=== PATIENT | male | born 1955 | race Caucasian/White ===

== ENCOUNTER 2018-08-05 08:01 | Emergency (ER) | payer MEDICARE ==
[2018-08-05 08:09] VITALS: O2SAT 98
--- NOTE | 2018-08-05 08:22 | ERPHSYRPT ---
- History of Present Illness Time Seen by Provider: 08/05/18 08:17 Historian: patient Exam Limitations: no limitations Physician History: Pt started c/o chest pressure last night after eating hot dog. He has vomited few times, states, the pain has been radiating to his back, denies cough, SOB< fever, diarrhea, diaphoresis other complaints. Timing/Duration: yesterday Activities at Onset: none Quality: pressure Location: central Chest Pain Radiation: back Severity of Pain-Max: severe Severity of Pain-Current: moderate Modifying Factors: Improves With: nothing Associated Symptoms: nausea, vomiting, abdominal pain Prior Chest Pain/Cardiac Workup: no prior chest pain Nitro Today/Relief: no nitro taken today Aspirin Treatment Today: no aspirin today Allergies/Adverse Reactions: No Known Drug Allergies Allergy (Verified 02/10/15 11:32) Home Medications: Meloxicam [Mobic] 15 mg PO DAILY 08/05/18 [History] Tamsulosin HCl 0.4 mg [Flomax 0.4 MG] 0.4 mg PO DAILY 08/05/18 [History] Hx Influenza Vaccination/Date Given: No Hx Pneumococcal Vaccination/Date Given: No - Review of Systems Constitutional: No Symptoms Ears, Nose, & Throat: No Symptoms Respiratory: No Symptoms Cardiac: Chest Pain, No Edema Abdominal/Gastrointestinal: Abdominal Pain, Nausea, Vomiting, No Diarrhea Genitourinary Symptoms: No Symptoms Musculoskeletal: No Symptoms Skin: No Symptoms Neurological: No Symptoms All Other Systems: Reviewed and Negative - Past Medical History Pertinent Past Medical History: Yes Neurological History: Other ENT History: No Pertinent History Cardiac History: No Pertinent History Respiratory History: Bronchitis, COPD, Pneumonia Endocrine Medical History: No Pertinent History Musculoskeletal History: Arthritis GI Medical History: GI Bleed History: No Pertinent History Psycho-Social History: No Pertinent History Male Reproductive Disorders: No Pertinent History Other Medical History: Cerebral Palsy - Past Surgical History Past Surgical History: Yes Neuro Surgical History: No Pertinent History Cardiac: No Pertinent History Respiratory: No Pertinent History Gastrointestinal: Hernia Repair, Other Genitourinary: No Pertinent History Musculoskeletal: Orthopedic Surgery Male Surgical History: No Pertinent History Other Surgical History: feeding tube placed for 2months then removed,L shoulder surgery - Social History Smoking Status: Current every day smoker How long have you smoked: 40 years Exposure to second hand smoke: Yes Drug Use: none Patient Lives Alone: No - Nursing Vital Signs Nursing Vital Signs: Initial Vital Signs Temperature 97.0 F 08/05/18 08:02 Pulse Rate 72 08/05/18 08:02 Respiratory Rate 23 08/05/18 08:02 Blood Pressure 138/82 08/05/18 08:02 O2 Sat by Pulse Oximetry 98 08/05/18 08:02 Pain Scale Pain Intensity 3 - Physical Exam General Appearance: no apparent distress Eye Exam: eyes nml inspection Ears, Nose, Throat Exam: normal ENT inspection, pharynx normal Neck Exam: normal inspection, non-tender, supple, No carotid bruit, No JVD Respiratory Exam: normal breath sounds, lungs clear, airway intact, No chest tenderness Cardiovascular Exam: regular rate/rhythm, normal heart sounds, normal peripheral pulses, No murmur Gastrointestinal/Abdomen Exam: soft, normal bowel sounds, tenderness (epigastric ) Back Exam: normal inspection, No CVA tenderness Extremity Exam: normal inspection Neurologic Exam: alert, oriented x 3, cooperative, normal mood/affect, other ( cerebral palsy) Skin Exam: normal color, warm, dry, No rash Lymphatic Exam: No adenopathy SpO2 Interpretation: normal SpO2: 98 O2 Delivery: Room Air - Course Nursing assessment & vital signs reviewed: Yes EKG Interpreted by Me: RATE (66/min), NORMAL AXIS, NORMAL INTERVALS, NORMAL QRS , Non-specific ST Changes, Other (repeat Ek:12 AM: NSR, unchanged) Ordered Tests: Active Orders 24 hr Category Date Time Status Dat Instructor STAT Care 08/05/18 08:10 Active EKG-ER Only STAT Care 08/05/18 08:09 Active EKG-ER Only STAT Care 08/05/18 10:08 Active IV Insertion STAT Care 08/05/18 08:09 Active CHEST 1 VIEW (PORTABLE) Stat Exams 08/05/18 08:10 Completed CBC W DIFF Stat Lab 08/05/18 08:09 Completed CK-Creatinine Phosphokinase Stat Lab 08/05/18 08:45 Completed CMP Stat Lab 08/05/18 08:45 Completed LIPASE Stat Lab 08/05/18 08:45 Completed NT PRO BNP Stat Lab 08/05/18 08:45 Completed PROTIME WITH INR Stat Lab 08/05/18 08:09 Completed PTT Stat Lab 08/05/18 08:09 Completed TROPONIN Q3H Lab 08/05/18 08:15 Completed TROPONIN Q3H Lab 08/05/18 10:26 Completed TROPONIN Q3H Lab 08/05/18 13:15 Ordered TROPONIN Q3H Lab 08/05/18 16:15 Ordered TROPONIN Q3H Lab 08/05/18 19:15 Ordered TROPONIN Q3H Lab 08/05/18 22:15 Ordered Medication Summary Discontinued Medications Generic Name Dose Route Start Last Admin Trade Name Freq PRN Reason Stop Dose Admin Al Hydrox/Mg Hydrox/Simethicone Confirm 08/05/18 08:25 Maalox Es 30 Ml Unit Dose Administered 08/05/18 08:26 Dose 30 ml .ROUTE .STK-MED ONE Famotidine 20 mg 08/05/18 08:17 08/05/18 08:28 Pepcid 20 Mg PO 08/05/18 08:18 20 mg STAT ONE Administration Famotidine Confirm 08/05/18 08:24 Pepcid 20 Mg Administered 08/05/18 08:25 Dose 20 mg .ROUTE .STK-MED ONE Lidocaine HCl Confirm 08/05/18 08:24 Xylocaine Hcl Viscous * Administered 08/05/18 08:25 Dose 15 ml .ROUTE .STK-MED ONE Magnesium Hydroxide 45 ml 08/05/18 08:17 08/05/18 08:28 Gi Cocktail 45 Ml (Maalox/Lidocaine) PO 08/05/18 08:18 45 ml STAT ONE Administration Ondansetron HCl 4 mg 08/05/18 08:17 08/05/18 08:27 Zofran Odt 4 Mg PO 08/05/18 08:18 4 mg STAT ONE Administration Ondansetron HCl Confirm 08/05/18 08:23 Zofran Odt 4 Mg Administered 08/05/18 08:24 Dose 4 mg .ROUTE .STK-MED ONE Lab/Rad Data: Laboratory Result Diagrams 08/05/18 08:09 08/05/18 08:45 Laboratory Results 08/05/18 08/05/18 08/05/18 Range/Units 10:26 08:45 08:15 WBC (4.0-10.5) K/mm3 RBC (4.1-5.6) M/mm3 Hgb (12.5-18.0) gm/dl Hct (42-50) % MCV (78-100) fl MCH (26-32) pg MCHC (32-36) g/dl RDW (11.5-14.0) % Plt Count (150-450) K/mm3 MPV (6-9.5) fl Gran % (36.0-66.0) % Eos # (Auto) (0-0.5) Absolute Lymphs (auto) (1.0-4.6) Absolute Monos (auto) (0.0-1.3) Lymphocytes % (24.0-44.0) % Monocytes % (0.0-12.0) % Eosinophils % (0.00-5.0) % Basophils % (0.0-0.4) % Absolute Granulocytes (1.4-6.9) Basophils # (0-0.4) PT (8.83-12.87) SECONDS INR (0.8-3.0) APTT (24.1-36.1) SECONDS Sodium 144 (137-145) mmol/L Potassium 4.1 (3.5-5.1) mmol/L Chloride 106 (98-107) mmol/L Carbon Dioxide 29 (22-30) mmol/L Anion Gap 13.5 (5-15) MEQ/L BUN 17 (9-20) mg/dL Creatinine 1.16 (0.66-1.25) mg/dL Estimated GFR > 60.0 ML/MIN Glucose 103 (74-106) mg/dL Calcium 10.2 (8.4-10.2) mg/dL Total Bilirubin 0.40 (0.2-1.3) mg/dL AST 19 (17-59) U/L ALT 15 (0-50) U/L Alkaline Phosphatase 132 H (38-126) U/L Creatine Kinase 56 (55-170) U/L Troponin I < 0.012 < 0.012 (0.000-0.034) ng/mL NT-Pro-B Natriuret Pep 95.0 (0-900) pg/mL Serum Total Protein 8.2 (6.3-8.2) g/dL Albumin 4.4 (3.5-5.0) g/dL Lipase 103 (23-300) U/L 08/05/18 08/05/18 Range/Units 08:09 08:09 WBC 8.5 (4.0-10.5) K/mm3 RBC 4.93 (4.1-5.6) M/mm3 Hgb 14.6 (12.5-18.0) gm/dl Hct 43.6 (42-50) % MCV 88.4 (78-100) fl MCH 29.6 (26-32) pg MCHC 33.5 (32-36) g/dl RDW 14.6 H (11.5-14.0) % Plt Count 159 (150-450) K/mm3 MPV 8.6 (6-9.5) fl Gran % 72.0 H (36.0-66.0) % Eos # (Auto) 0.30 (0-0.5) Absolute Lymphs (auto) 1.47 (1.0-4.6) Absolute Monos (auto) 0.60 (0.0-1.3) Lymphocytes % 17.3 L (24.0-44.0) % Monocytes % 7.1 (0.0-12.0) % Eosinophils % 3.5 (0.00-5.0) % Basophils % 0.1 (0.0-0.4) % Absolute Granulocytes 6.11 (1.4-6.9) Basophils # 0.01 (0-0.4) PT 14.1 H (8.83-12.87) SECONDS INR 1.21 (0.8-3.0) APTT 32.7 (24.1-36.1) SECONDS Sodium (137-145) mmol/L Potassium (3.5-5.1) mmol/L Chloride (98-107) mmol/L Carbon Dioxide (22-30) mmol/L Anion Gap (5-15) MEQ/L BUN (9-20) mg/dL Creatinine (0.66-1.25) mg/dL Estimated GFR ML/MIN Glucose (74-106) mg/dL Calcium (8.4-10.2) mg/dL Total Bilirubin (0.2-1.3) mg/dL AST (17-59) U/L ALT (0-50) U/L Alkaline Phosphatase (38-126) U/L Creatine Kinase (55-170) U/L Troponin I (0.000-0.034) ng/mL NT-Pro-B Natriuret Pep (0-900) pg/mL Serum Total Protein (6.3-8.2) g/dL Albumin (3.5-5.0) g/dL Lipase (23-300) U/L - Progress Progress: improved Air Movement: good Progress Note: 08/05/18 10:15 Pt states, his pain and nausea resolved after Zofran SL and Pepcid, GI cocktail PO, he feels much better, no fever, no difficulty breathing or dizziness, We reviewed his test results, discussed the possible differentials, he is being discharged home to rest x 2-3 days, diet, (no spicy, greasy food) and follow up with his physician in 2-3 days. Blood Culture(s) Obtained: No Antibiotics given: No Counseled pt/family regarding: lab results, diagnosis, need for follow-up, rad results - Departure Departure Disposition: Home Clinical Impression: Chest pain due to GERD Condition: Stable Critical Care Time: No Referrals: ELIS GATICA MD [Primary Care Provider] - Instructions: Atypical Chest Pain Additional Instructions: Rest x 2-3 days, avoid spicy, greasy food, and follow up with your physician in 2-3 days, return if severe pain, vomiting, difficulty breathing, fever> 102 F! Prescriptions: Ondansetron ODT 4 MG [Zofran Odt 4 mg] 4 mg PO Q6H PRN PRN #10 tab.rapdis PRN Reason: Nausea/Vomiting Omeprazole Magnesium [Prilosec] 10 mg PO DAILY #30 suspdr.pkt
[2018-08-05] MEDS ORDERED: ZOFRAN ODT 4 MG ONE (08:23)
[2018-08-05] MEDS ORDERED: Pepcid 20 MG ONE (08:24)
[2018-08-05] MEDS ORDERED: XYLOCAINE HCl Viscous ONE (08:24)
[2018-08-05] MEDS ORDERED: MAALOX ES 30 ML UNIT DOSE ONE (08:25)
[2018-08-05] MEDS: ZOFRAN ODT 4 MG PO ONE (08:27)
[2018-08-05] MEDS: GI COCKTAIL 45 ML (Maalox/Lidocaine) PO ONE (08:28)
[2018-08-05] MEDS: Pepcid 20 MG PO ONE (08:28)
[2018-08-05 08:46] LABS: BASOPHIL % 0.1 % (0.0-0.4); Basophil (Absolute #) 0.01 (0-0.4); Eosinophil % 3.5 % (0.00-5.0); Granulocyte Absolute (ANC) 6.11 (1.4-6.9); Hematocrit 43.6 % (42-50); Hemoglobin 14.6 gm/dl (12.5-18.0); Lymphocyte (Absolute #) 1.47 (1.0-4.6); Lymphocytes % 17.3 % (24.0-44.0); Mean Cell Volume 88.4 fl (78-100); Mean Corpuscular Hemoglobin 29.6 pg (26-32); Mean Corpuscular Hgb Concent. 33.5 g/dl (32-36); Mean Platelet Volume 8.6 fl (6-9.5); Monocytes % 7.1 % (0.0-12.0); Platelet Count 159 K/mm3 (150-450); Red Blood Count 4.93 M/mm3 (4.1-5.6); Red Cell Distribution Width 14.6 % (11.5-14.0); White Blood Count 8.5 K/mm3 (4.0-10.5)
--- NOTE | 2018-08-05 09:00 | XRAY ---
Indication: Chest pain. Comparison: March 19, 2016. Portable chest again hyperinflated with scattered fibrosis/scarring and left base calcified pleural plaquing. No focal infiltrate, consolidation, or large effusion. Heart and mediastinal structures within normal limits. Bony thorax intact again with mild osteopenia. Impression: Stable nonacute hyperinflated chest with chronic features.
[2018-08-05 09:08] LABS: INR 1.21 (0.8-3.0); PROTIME 14.1 SECONDS (8.83-12.87)
[2018-08-05 09:11] LABS: PTT 32.7 SECONDS (24.1-36.1)
[2018-08-05 09:22] LABS: ALBUMIN 4.4 g/dL (3.5-5.0); ALKALINE PHOSPHATASE 132 U/L (38-126); ANION GAP 13.5 MEQ/L (5-15); BLOOD UREA NITROGEN 17 mg/dL (9-20); CHLORIDE 106 mmol/L (98-107); CK-Creatinine Phosphokinase 56 U/L (55-170); Calcium 10.2 mg/dL (8.4-10.2); Carbon Dioxide 29 mmol/L (22-30); Creatinine 1 1.16 mg/dL (0.66-1.25); Glucose 103 mg/dL (74-106); LIPASE 103 U/L (23-300); Potassium 4.1 mmol/L (3.5-5.1); SGOT/AST 19 U/L (17-59); SGPT/ALT 15 U/L (0-50); SODIUM 144 mmol/L (137-145); Total Protein 8.2 g/dL (6.3-8.2)
[2018-08-05 11:19] VITALS: BP 115/77; PULSE 70
== END 2018-08-05 11:18 | disposition home or self-care (01) ==
LOC: ED 08:01
DX: K21.9 Gastro-esophageal reflux disease without esophagitis (principal); J44.9 Chronic obstructive pulmonary disease, unspecified; M19.90 Unspecified osteoarthritis, unspecified site; G80.9 Cerebral palsy, unspecified
CPT/HCPCS: 36000; 36415; 71045; 80053; 82550; 83690; 83880; 84484; 85025; 85610; 85730; 93005; 93041; 99284; Q0162; A9270-GY

== ENCOUNTER 2018-12-17 11:55 | Emergency (ER) | payer MEDICARE | END 2018-12-17 17:17 | disposition home or self-care (01) | LOC: ED 11:55 ==

== ENCOUNTER 2019-01-20 09:53 | Day surgery (SDC) | payer MEDICARE ==
--- NOTE | 2019-01-20 08:18 | HP ---
DATE OF SURGERY: 01/20/2019 HISTORY OF PRESENT ILLNESS: The patient is a 63 year-old who had some retained food bolus removed in the past. He is still having some dysphasia particularly his lower esophagus. He is in need of follow up upper endoscopy possibly biopsy possible dilatation. PAST MEDICAL HISTORY: Chronic obstructive pulmonary disease. Cerebral palsy. He had left shoulder surgery in the past. He had bronchoscopy in the past. PAST SURGICAL HISTORY: He has had upper endoscopy. Feeding tube placed and removed. Left shoulder surgery. Hernia repair in the past. MEDICATIONS: Meloxicam, Tamsulosin. ALLERGIES: NKDA. FAMILY HISTORY: Negative in regards to this problem. SOCIAL HISTORY: He has history of smoking in the past. REVIEW OF SYSTEMS: Fourteen systems reviewed. No chest pain or palpitations other systems negative or noncontributory as above and per preadmission questionnaire and per as noted above. PHYSICAL EXAMINATION: GENERAL: No acute distress. HEENT: Sclerae nonicteric. NECK: No JVD. CHEST: Equal excursion, nonlabored breathing. CVS: Regular rate and rhythm. ABDOMEN: Soft. No peritoneal signs. EXTREMITIES: No significant edema. NEURO: Alert, oriented, moving extremities symmetrically. No gross motor deficits noted. IMPRESSION: Dysphagia lower esophagus, in need of follow up upper endoscopy possible biopsy possible dilatation. Risks and benefits explained in detail including but not limited to bleeding or infection, risk of bowel injury or perforation possibly requiring open procedure, risk of missed or nondiagnosis or incomplete exam possibly requiring barium swallow, other studies or procedures, general risk of anesthesia or sedation, possibility inability to improve his swallowing that this may be functional rather than mechanical. He understands general risk of anesthesia, deep venous thrombosis, pulmonary embolism, pneumonia, risk of aspiration, will proceed with EGD with possible biopsy possible dilatation as an outpatient.
[~2019-01-20 09:53] MED LIST: Lactated Ringers 1,000 ML IV SCH
[2019-01-20] MEDS ORDERED: DIPRIVAN 200 MG/20 ML IV ONE ×2 (11:53→12:39)
[2019-01-20 13:14] VITALS: BP 132/74; PULSE 74; O2SAT 99
--- NOTE | 2019-01-20 14:58 | OP ---
SURGERY DATE/TIME: 01/20/2019 1153 PREOPERATIVE DIAGNOSIS: Dysphagia. 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 PROCEDURES: 1) EGD with cold biopsy of distal esophagus to evaluate for possible Vega's esophagus. 2) Esophageal balloon dilatation distal esophagus (size 20 balloon dilator). SURGEON: Dr. Dax Kincaid. ANESTHESIA: MAC. DESCRIPTION OF PROCEDURE AND FINDINGS: The patient is taken to the operating room. MAC anesthesia introduced. After official time out and no disagreement with planned procedure, bite block positioned. Video gastroscope passed down the proximal esophagus, had a narrowed area and spasm distal esophagus and had question of possibly some Vega's or short segment of Vega's. Random cold biopsies were taken to evaluate for Vega's esophagus. Good hemostasis noted. Again, it is felt this narrowed area where he was having his symptoms warranted dilatation. The scope passed back down the stomach. A 20 balloon dilator catheter carefully inserted under direct vision of the camera, pulled back to the distal esophageal narrowing. It was then carefully inflated for a few seconds the first stage size 18 for 45 seconds, size 19 balloon dilator and the final stage size 20 balloon dilator was left up for 2 minutes. The balloon was then released and withdrawn. The scope much more easily passed through this area. There was no evidence of any full thickness issues or injury secondary to dilatation. The scope is withdrawn. Patient tolerated the procedure well. Findings discussed with the family out in the waiting area. If he keeps having recurrent problems with dysphagia, he might need consideration of esophagogram but at this time the area was much more widely patent than it had been before.
== END 2019-01-20 13:19 | disposition home or self-care (01) ==
LOC: SDC 09:53
PROVIDERS: ATTEND Surgery
DX: K22.2 Esophageal obstruction (principal); K22.4 Dyskinesia of esophagus; Z87.821 Personal history of retained foreign body fully removed
CPT/HCPCS: 88305; C1726; J2704

== ENCOUNTER 2019-05-28 09:15 | Emergency (ER) | payer MEDICARE ==
[2019-05-28] MEDS ORDERED: TETRACAINE 0.5% STERI-UNIT SOL OP STA (09:17)
[2019-05-28 09:33] VITALS: O2SAT 99
[2019-05-28] MEDS ORDERED: TYLENOL 325 MG PO ONE (09:52)
[2019-05-28] MEDS ORDERED: Sodium Chloride 0.9% 1000 ML 1,000 ML IV SCH (10:00)
[2019-05-28] MEDS ORDERED: Sodium Chloride 0.9% 1000 ML 1,000 ML ONE (10:08)
[2019-05-28] MEDS ORDERED: TYLENOL 325 MG ONE (10:08)
[2019-05-28 10:11] LABS: Absolute Neutrophil Ct (ANC) 3.81 (1.4-6.9); BASOPHIL % 0.2 % (0.0-0.4); Basophil (Absolute #) 0.01 (0-0.4); Eosinophil % 5.8 % (0.00-5.0); Eosinophil (Absolute #) 0.31 (0-0.5); Hematocrit 40.1 % (42-50); Lymphocyte (Absolute #) 0.73 (1.0-4.6); Lymphocytes % 13.6 % (24.0-44.0); Mean Cell Volume 88.7 fl (78-100); Mean Corpuscular Hgb Concent. 34.9 g/dl (32-36); Mean Platelet Volume 8.6 fl (7.5-11.0); Monocyte (Absolute #) 0.49 (0.0-1.3); Monocytes % 9.2 % (0.0-12.0); Neutrophil % 71.2 % (36.0-66.0); Platelet Count 142 K/mm3 (150-450); Red Blood Count 4.52 M/mm3 (4.1-5.6); Red Cell Distribution Width 13.8 % (11.5-14.0); White Blood Count 5.4 K/mm3 (4.0-10.5)
--- NOTE | 2019-05-28 10:23 | ERPHSYRPT ---
- History of Present Illness Time Seen by Provider: 05/28/19 09:47 Patient Subjective Stated Complaint: Left sided rib pain Triage Nursing Assessment: Patient ambulated back to ED and transferred self to bed. Patient A+O X3. Patient's skin pink, warm and dry. Patient complains of falling landing on left side approximately one week ago. Patient complains of left sided rib pain 10/10. Patient states it hurts to take a deep breath or move and feel sharp pain. No visible injuries noted. Lungs clear a/p luana. Patient also has non-productive cough. Physician History: Patient is a 63yo M who presents to ED with c/o TTP at left UQ and rib. He has a history of CP with unstable gait. Patient was walking into his bathroom when he lost his balance and fell. The fall was not associated with neuro or cardiovascular symptomology. NO associated CP or SOB. NO N/V or diaphoresis. No syncope. NO BHT/LOC. NO c-spine pain. C-spine cleared clinically. Pain is an ache that is well localized. No radiation. Pain reproduced with movement, palpation and deep breaths. Timing/Duration: week(s) (1 week) Activities at Onset: activity Quality: aching Abdominal Pain Onset Location: LUQ Pain Radiation: no radiation Severity of Pain-Max: severe (moderate to severe) Severity of Pain-Current: moderate Modifying Factors: Improves With: movement, palpation Associated Symptoms: back, chest pain, fever/chills, nausea, syncope, vomiting, weakness Previous symptoms: no prior history Allergies/Adverse Reactions: No Known Drug Allergies Allergy (Verified 05/28/19 09:25) Home Medications: Tamsulosin HCl 0.4 mg [Flomax 0.4 MG] 0.4 mg PO DAILY 08/05/18 [History] Hx Influenza Vaccination/Date Given: No Hx Pneumococcal Vaccination/Date Given: No Immunizations Up to Date: Yes - Review of Systems Constitutional: No Fever, No Chills Eyes: No Symptoms Ears, Nose, & Throat: No Symptoms Respiratory: No Cough, No Dyspnea Cardiac: No Chest Pain, No Edema, No Syncope Abdominal/Gastrointestinal: No Abdominal Pain, No Nausea, No Vomiting, No Diarrhea Genitourinary Symptoms: No Dysuria Musculoskeletal: No Back Pain, No Neck Pain Skin: No Rash Neurological: No Dizziness, No Focal Weakness, No Sensory Changes Psychological: No Symptoms Endocrine: No Symptoms All Other Systems: Reviewed and Negative - Past Medical History Pertinent Past Medical History: Yes Neurological History: Other ENT History: No Pertinent History Cardiac History: No Pertinent History Respiratory History: Bronchitis, COPD, Pneumonia Endocrine Medical History: No Pertinent History Musculoskeletal History: Arthritis GI Medical History: GI Bleed History: No Pertinent History Psycho-Social History: No Pertinent History Male Reproductive Disorders: No Pertinent History Other Medical History: Cerebral Palsy - Past Surgical History Past Surgical History: Yes Neuro Surgical History: No Pertinent History Cardiac: No Pertinent History Respiratory: No Pertinent History Gastrointestinal: Hernia Repair, Other Genitourinary: No Pertinent History Musculoskeletal: Orthopedic Surgery Male Surgical History: No Pertinent History Other Surgical History: feeding tube placed for 2months then removed,L shoulder surgery. EGD with food Bolus - Social History Smoking Status: Current every day smoker How long have you smoked: years Exposure to second hand smoke: Yes Drug Use: none Patient Lives Alone: No - Nursing Vital Signs Nursing Vital Signs: Initial Vital Signs Temperature 98.1 F 05/28/19 09:26 Pulse Rate 70 05/28/19 09:26 Respiratory Rate 18 05/28/19 09:26 Blood Pressure 154/82 05/28/19 09:26 O2 Sat by Pulse Oximetry 99 05/28/19 09:26 Pain Scale Pain Intensity 6 - Physical Exam General Appearance: no apparent distress, alert Eye Exam: PERRL/EOMI, eyes nml inspection Ears, Nose, Throat Exam: normal ENT inspection, pharynx normal, moist mucous membranes Neck Exam: normal inspection, non-tender, supple, full range of motion Respiratory Exam: normal breath sounds, lungs clear, No respiratory distress Cardiovascular Exam: regular rate/rhythm, normal heart sounds Gastrointestinal/Abdomen Exam: soft, tenderness (TTP Rt. UQ near spleen and lower ribs. Overlying ST intact. ), No mass Back Exam: normal inspection, normal range of motion, No CVA tenderness, No vertebral tenderness Extremity Exam: normal inspection, normal range of motion, pelvis stable Neurologic Exam: alert, oriented x 3, cooperative, normal mood/affect, nml cerebellar function, sensation nml, No motor deficits Skin Exam: normal color, warm, dry SpO2: 99 - Radiology Exams Left Ribs X-ray Interpretation: No Pneumothorax, Displaced Fracture, Non-displaced Fracture - CT Exams Abdomen/Pelvis CT Interpretation: No appendicitis Ordered Tests: Active Orders 24 hr Category Date Time Status EKG-ER Only STAT Care 05/28/19 09:52 Active IV Insertion STAT Care 05/28/19 09:52 Active ABDOMEN AND PELVIS W CONTRAST [CT] Stat Exams 05/28/19 09:52 Completed RIBS UNILATERAL Stat Exams 05/28/19 09:56 Completed CBC W DIFF Stat Lab 05/28/19 10:10 Completed CMP Stat Lab 05/28/19 10:10 Completed TROPONIN Q3H Lab 05/28/19 10:10 Completed TROPONIN Q3H Lab 05/28/19 13:00 Ordered TROPONIN Q3H Lab 05/28/19 16:00 Ordered TROPONIN Q3H Lab 05/28/19 19:00 Ordered TROPONIN Q3H Lab 05/28/19 22:00 Ordered Transfer Order Routine Transfer 05/28/19 Ordered Medication Summary Generic Name Dose Route Start Last Admin Trade Name Freq PRN Reason Stop Dose Admin Sodium Chloride 1,000 mls @ 100 mls/hr 05/28/19 10:00 05/28/19 10:11 Sodium Chloride 0.9% 1000 Ml IV 06/27/19 09:59 100 mls/hr .Q10H LEEANNA Administration Discontinued Medications Generic Name Dose Route Start Last Admin Trade Name Freq PRN Reason Stop Dose Admin Acetaminophen 975 mg 05/28/19 09:52 05/28/19 10:09 Tylenol 325 Mg PO 05/28/19 09:53 975 mg STAT ONE Administration Acetaminophen Confirm 05/28/19 10:08 Tylenol 325 Mg Administered 05/28/19 10:09 Dose 975 mg .ROUTE .STK-MED ONE Ketorolac Tromethamine 30 mg 05/28/19 13:01 Toradol 30 Mg Injection IV 05/28/19 13:02 STAT ONE Tetracaine HCl 4 ml 05/28/19 09:17 05/28/19 09:39 Tetracaine 0.5% Steri-Unit Lizett OP 05/28/19 09:18 Not Given STAT STA Lab/Rad Data: Laboratory Result Diagrams 05/28/19 10:10 05/28/19 10:10 Laboratory Results 05/28/19 05/28/19 05/28/19 Range/Units 10:10 10:10 10:10 WBC 5.4 (4.0-10.5) K/mm3 RBC 4.52 (4.1-5.6) M/mm3 Hgb 14.0 (12.5-18.0) gm/dl Hct 40.1 L (42-50) % MCV 88.7 (78-100) fl MCH 31.0 (26-32) pg MCHC 34.9 (32-36) g/dl RDW 13.8 (11.5-14.0) % Plt Count 142 L (150-450) K/mm3 MPV 8.6 (7.5-11.0) fl Gran % 71.2 H (36.0-66.0) % Eos # (Auto) 0.31 (0-0.5) Absolute Lymphs (auto) 0.73 L (1.0-4.6) Absolute Monos (auto) 0.49 (0.0-1.3) Lymphocytes % 13.6 L (24.0-44.0) % Monocytes % 9.2 (0.0-12.0) % Eosinophils % 5.8 H (0.00-5.0) % Basophils % 0.2 (0.0-0.4) % Absolute Granulocytes 3.81 (1.4-6.9) Basophils # 0.01 (0-0.4) Sodium 138 (137-145) mmol/L Potassium 4.2 (3.5-5.1) mmol/L Chloride 100 (98-107) mmol/L Carbon Dioxide 29 (22-30) mmol/L Anion Gap 13.2 (5-15) MEQ/L BUN 18 (9-20) mg/dL Creatinine 1.21 (0.66-1.25) mg/dL Estimated GFR > 60.0 ML/MIN Glucose 100 (74-106) mg/dL Calcium 9.7 (8.4-10.2) mg/dL Total Bilirubin 0.50 (0.2-1.3) mg/dL AST 23 (17-59) U/L ALT 12 (0-50) U/L Alkaline Phosphatase 140 H (38-126) U/L Troponin I < 0.012 (0.000-0.034) ng/mL Serum Total Protein 8.2 (6.3-8.2) g/dL Albumin 4.4 (3.5-5.0) g/dL - Departure Departure Disposition: Home (home) Clinical Impression: Rib fracture, Pleural plaque, Lesion of spleen, Calcification of both carotid arteries Condition: Good Critical Care Time: No Referrals: ELIS GATICA MD [Primary Care Provider] - Additional Instructions: Do not take toradol with mobic. Will have to discontinue mobic while taking toradol Discharge/Care Plan LATONIA PRESTON was seen on 05/28/19 in the Emergency Room. The patient was counseled regarding Diagnosis,Lab results, Imaging studies, need for follow up and when to return to the Emergency Room. Prescriptions given: Discharge Note I have spoken with the patient and/or caregivers. I have explained the patient' s condition, diagnosis and treatment plan based on the information available to me at this time. I have answered the patient's and/or caregiver's questions and addressed any concerns. The patient and/or caregivers have as good understanding of the patient's diagnosis, condition and treatment plan as can be expected at this point. The vital signs have been stable. The patient's condition is stable and appropriate for discharge from the emergency department. The patient will pursue further outpatient evaluation with the primary care physician or other designated or consulting physician as outlined in the discharge instructions. The patient and/or caregivers are agreeable to this plan of care and follow-up instructions have been explained in detail. The patient and/or caregivers have received these instruction. The patient/and or caregivers are aware that any significant change in condition or worsening of symptoms should prompt an immediate return to this or the closest emergency department or call 911. Prescriptions: Ketorolac Tromethamine [Toradol] 10 mg PO Q8H PRN PRN 5 Days #15 tablet PRN Reason: Pain
[2019-05-28 10:32] LABS: ALBUMIN 4.4 g/dL (3.5-5.0); ALKALINE PHOSPHATASE 140 U/L (38-126); ANION GAP 13.2 MEQ/L (5-15); BLOOD UREA NITROGEN 18 mg/dL (9-20); CHLORIDE 100 mmol/L (98-107); Calcium 9.7 mg/dL (8.4-10.2); Carbon Dioxide 29 mmol/L (22-30); Creatinine 1 1.21 mg/dL (0.66-1.25); Glucose 100 mg/dL (74-106); Potassium 4.2 mmol/L (3.5-5.1); SGOT/AST 23 U/L (17-59); SGPT/ALT 12 U/L (0-50); SODIUM 138 mmol/L (137-145); Total Protein 8.2 g/dL (6.3-8.2)
--- NOTE | 2019-05-28 11:39 | XRAY ---
Indication: Right sided pain. Status post fall with possible ruptured spleen. Multiple contiguous axial images obtained through the abdomen and pelvis using 80 cc Isovue 370 contrast only. Comparison: March 03, 2011. Lung bases again demonstrates pulmonary emphysema with scattered fibrosis/scarring bilaterally and left base calcified pleural plaquing. Heart is not enlarged. Noncontrasted stomach and bowel loops appear nonobstructed. Appendix not identified. There is now mild diffuse scattered colonic fecal debris throughout. No free fluid/air. Stable calcified hepatic/splenic granulomas. Remaining liver, gallbladder, pancreas, spleen, adrenal glands, kidneys, ureters, and bladder appear unremarkable. There remains scattered aortoiliac calcifications. No AAA or pathologic retroperitoneal lymphadenopathy. Osseous structures demonstrates new nondisplaced left lateral 8 and 9 acute rib fractures. Stable degenerative changes throughout the lumbar spine and bilateral L5 spondylolysis with normal grade 1 spondylolisthesis. Impression: 1. New diffuse fecal stasis without obstruction. 2. New nondisplaced left 8 and 9 acute rib fractures without complications. 3. Stable pulmonary emphysema, pulmonary fibrosis/scarring, left lung base calcified pleural plaquing, evidence for old granulomatous disease, and chronic bony findings.
--- NOTE | 2019-05-28 11:46 | XRAY ---
Indication: Pain following fall. Comparison: None 2 views of the left ribs demonstrates nondisplaced lateral 8-10 acute rib fractures without pneumothorax/hemothorax. Incidental bilateral scattered pulmonary fibrosis/scarring, left lung base calcified pleural plaquing, calcified splenic granulomas, bilateral carotid calcifications, and contrast in the system from same day CT exam.
[2019-05-28] MEDS ORDERED: TORAdol 30 mg Injection IV ONE (13:01)
[2019-05-28] MEDS ORDERED: TORAdol 30 mg Injection ONE (13:03)
[2019-05-28 13:10] VITALS: BP 149/75; PULSE 61
== END 2019-05-28 13:18 | disposition home or self-care (01) ==
LOC: ED 09:15
DX: S22.39XA Fracture of one rib, unspecified side, initial encounter for closed fracture (principal); J92.9 Pleural plaque without asbestos; D73.89 Other diseases of spleen; I65.29 Occlusion and stenosis of unspecified carotid artery; J44.9 Chronic obstructive pulmonary disease, unspecified; G80.9 Cerebral palsy, unspecified
CPT/HCPCS: 36000; 36415; 71100; 74177; 80053; 84484; 85025; 93005; 96360; 96361; 96375; 99284; J1885; A9270-GY

== ENCOUNTER 2020-01-28 10:31 | Emergency (ER) | payer MEDICARE ==
[2020-01-28] MEDS ORDERED: GlucaGen 1 MG IM ONE (10:42)
--- NOTE | 2020-01-28 10:46 | ERPHSYRPT ---
- History of Present Illness Time Seen by Provider: 01/28/20 10:35 Source: patient, family Exam Limitations: clinical condition (Presumed esophageal food bolus and cerebral palsy) Patient Subjective Stated Complaint: Pt states throat pain and difficulty breathing due to food bolus in throat from eating [place] food. Triage Nursing Assessment: Pt presents coughing, having some difficulty breathing d/t food bolus in throat. Gurgling heard coming from throat. Heart rate WNL. RR slightly elevated. A & Ox3. Difficulty talking d/t food bolus. Physician History: This is a 64-year-old white male who has a history of cerebral palsy and has had recurrent esophageal food boluses in the past requiring upper endoscopy to res olve the obstruction/partial obstruction. Patient ate [place] food last evening and this morning began coughing gagging gurgling. Timing/Duration: today Severity: moderate Associated Symptoms: other (Coughing, gagging, gurgling.) Allergies/Adverse Reactions: No Known Drug Allergies Allergy (Verified 01/28/20 10:42) Home Medications: Tamsulosin HCl 0.4 mg [Flomax 0.4 MG] 0.4 mg PO DAILY 08/05/18 [History] Hx Tetanus, Diphtheria Vaccination/Date Given: No Hx Influenza Vaccination/Date Given: No Hx Pneumococcal Vaccination/Date Given: No Travel Risk - International Travel Have you traveled outside of the country in past 3 weeks: No - Coronavirus Screening Are you exhibiting any of the following symptoms?: No Close contact with a COVID-19 positive Pt in past 14-21 Days: No - Review of Systems Constitutional: No Symptoms Eyes: No Symptoms Ears, Nose, & Throat: Other (Gagging and gurgling) Respiratory: Cough Cardiac: No Symptoms Abdominal/Gastrointestinal: No Symptoms Genitourinary Symptoms: No Symptoms Musculoskeletal: No Symptoms Skin: No Symptoms Neurological: No Symptoms Psychological: No Symptoms Endocrine: No Symptoms Hematologic/Lymphatic: No Symptoms Immunological/Allergic: No Symptoms All Other Systems: Reviewed and Negative - Past Medical History Pertinent Past Medical History: Yes Neurological History: Other ENT History: No Pertinent History Cardiac History: No Pertinent History Respiratory History: Bronchitis, COPD, Pneumonia Endocrine Medical History: No Pertinent History Musculoskeletal History: Arthritis GI Medical History: GI Bleed History: No Pertinent History Psycho-Social History: No Pertinent History Male Reproductive Disorders: No Pertinent History Other Medical History: Cerebral Palsy - Past Surgical History Past Surgical History: Yes Neuro Surgical History: No Pertinent History Cardiac: No Pertinent History Respiratory: No Pertinent History Gastrointestinal: Hernia Repair, Other Genitourinary: No Pertinent History Musculoskeletal: Orthopedic Surgery Male Surgical History: No Pertinent History Other Surgical History: feeding tube placed for 2months then removed,L shoulder surgery. EGD with food Bolus - Social History Smoking Status: Current every day smoker How long have you smoked: 53 Exposure to second hand smoke: Yes Drug Use: none Patient Lives Alone: No - Nursing Vital Signs Nursing Vital Signs: Initial Vital Signs Temperature 99.2 F 01/28/20 10:32 Pulse Rate 64 01/28/20 10:32 Respiratory Rate 20 01/28/20 10:32 Blood Pressure 125/92 01/28/20 10:32 O2 Sat by Pulse Oximetry 98 01/28/20 10:32 Pain Scale Pain Intensity 10 - Physical Exam General Appearance: moderate distress, alert, anxiety, thin Eye Exam: PERRL/EOMI, eyes nml inspection Ears, Nose, Throat Exam: normal ENT inspection, moist mucous membranes Neck Exam: normal inspection, non-tender, supple, full range of motion Respiratory Exam: normal breath sounds, lungs clear, airway intact, No chest tenderness, No respiratory distress Cardiovascular Exam: regular rate/rhythm, normal heart sounds, normal peripheral pulses Gastrointestinal/Abdomen Exam: soft, normal bowel sounds, No tenderness Rectal Exam: not done Back Exam: normal inspection, normal range of motion, No CVA tenderness, No vertebral tenderness Extremity Exam: normal inspection, normal range of motion, pelvis stable Neurologic Exam: alert, oriented x 3, 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, 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 SpO2: 98 - Course Nursing assessment & vital signs reviewed: Yes Ordered Tests: Active Orders 24 hr Category Date Time Status IV Insertion STAT Care 01/28/20 10:40 Active BMP Stat Lab 01/28/20 11:28 Completed CBC W DIFF Stat Lab 01/28/20 11:28 Completed Medication Summary Discontinued Medications Generic Name Dose Route Start Last Admin Trade Name Freq PRN Reason Stop Dose Admin Glucagon 1 mg 01/28/20 10:42 01/28/20 10:54 Glucagen 1 Mg IM 01/28/20 10:43 1 mg STAT ONE Administration Glucagon Confirm 01/28/20 10:50 Glucagen 1 Mg Administered 01/28/20 10:51 Dose 1 mg .ROUTE .STK-MED ONE Lab/Rad Data: Laboratory Result Diagrams 01/28/20 11:28 01/28/20 11:28 Laboratory Results 01/28/20 01/28/20 Range/Units 11:28 11:28 WBC 8.9 (4.0-10.5) K/mm3 RBC 5.24 (4.1-5.6) M/mm3 Hgb 16.0 (12.5-18.0) gm/dl Hct 48.0 (42-50) % MCV 91.6 (78-100) fl MCH 30.5 (26-32) pg MCHC 33.3 (32-36) g/dl RDW 15.1 H (11.5-14.0) % Plt Count 194 (150-450) K/mm3 MPV 9.2 (7.5-11.0) fl Gran % 71.2 H (36.0-66.0) % Eos # (Auto) 0.23 (0-0.5) Absolute Lymphs (auto) 1.67 (1.0-4.6) Absolute Monos (auto) 0.64 (0.0-1.3) Lymphocytes % 18.8 L (24.0-44.0) % Monocytes % 7.2 (0.0-12.0) % Eosinophils % 2.6 (0.00-5.0) % Basophils % 0.2 (0.0-0.4) % Absolute Granulocytes 6.34 (1.4-6.9) Basophils # 0.02 (0-0.4) Sodium 140 (137-145) mmol/L Potassium 4.4 (3.5-5.1) mmol/L Chloride 103 (98-107) mmol/L Carbon Dioxide 26 (22-30) mmol/L Anion Gap 16.0 H (5-15) MEQ/L BUN 22 H (9-20) mg/dL Creatinine 1.55 H (0.66-1.25) mg/dL Estimated GFR 47.9 ML/MIN Glucose 99 (74-106) mg/dL Calcium 10.3 H (8.4-10.2) mg/dL - Progress Progress Note: 01/28/20 11:17 Medical decision making: This patient clinically has an esophageal food bolus. He has had them in the past requiring upper endoscopy for clearance and evaluation. I contacted Dr. Mccormick who is on-call for the practice. He is a general surgeon who performs endoscopies. He is in the office and following office he has a big surgery scheduled and will not be able to perform the endoscopy till this evening. However, he is contacting his office to see if they can make arrangements for an earlier upper endoscopy at an outpatient facility in [place]. This would require the patient to be transferred but will allow him to have the necessary upper endoscopy performed earlier as an outpatient. We are awaiting the call back from the general surgery office. I discussed these issues with the patient and his significant other. 01/28/20 12:16 General surgeon's office has made arrangements for the patient to have an trent ier outpatient procedure performed. Patient will be discharged from here and then will go by private vehicle to [facility] outpatient facility for registration. Patient is to go directly there to the facility n.p.o. (no food or drink). Patient is hemodynamically stable for transfer via POV Counseled pt/family regarding: lab results, diagnosis - Departure Departure Disposition: Transfer Clinical Impression: Esophageal foreign body Condition: Stable Critical Care Time: No Referrals: ELIS GATICA MD [Primary Care Provider] - Additional Instructions: Go directly to the [facility] facility as discussed via private vehicle. Do not consume any fluids or solid foods.
[2020-01-28] MEDS ORDERED: GlucaGen 1 MG ONE (10:50)
[2020-01-28 11:33] LABS: Absolute Neutrophil Ct (ANC) 6.34 (1.4-6.9); BASOPHIL % 0.2 % (0.0-0.4); Basophil (Absolute #) 0.02 (0-0.4); Eosinophil % 2.6 % (0.00-5.0); Eosinophil (Absolute #) 0.23 (0-0.5); Lymphocyte (Absolute #) 1.67 (1.0-4.6); Lymphocytes % 18.8 % (24.0-44.0); Mean Cell Volume 91.6 fl (78-100); Mean Corpuscular Hemoglobin 30.5 pg (26-32); Mean Corpuscular Hgb Concent. 33.3 g/dl (32-36); Mean Platelet Volume 9.2 fl (7.5-11.0); Monocyte (Absolute #) 0.64 (0.0-1.3); Monocytes % 7.2 % (0.0-12.0); Neutrophil % 71.2 % (36.0-66.0); Platelet Count 194 K/mm3 (150-450); Red Blood Count 5.24 M/mm3 (4.1-5.6); Red Cell Distribution Width 15.1 % (11.5-14.0); White Blood Count 8.9 K/mm3 (4.0-10.5)
[2020-01-28 11:42] LABS: Calcium 10.3 mg/dL (8.4-10.2); Creatinine 1 1.55 mg/dL (0.66-1.25); EST GLOMERULAR FILTRATION RATE 47.9 ML/MIN; Potassium 4.4 mmol/L (3.5-5.1)
[2020-01-28 12:23] VITALS: BP 128/70; PULSE 75; O2SAT 96
== END 2020-01-28 12:53 | disposition short-term general hospital (02) ==
LOC: ED 10:31
DX: T18.128A Food in esophagus causing other injury, initial encounter (principal); Z72.0 Tobacco use; J44.9 Chronic obstructive pulmonary disease, unspecified; G80.9 Cerebral palsy, unspecified
CPT/HCPCS: 36000; 36415; 80048; 85025; 96372; 99285; J1610

== ENCOUNTER 2021-12-07 10:19 | Emergency (ER) | payer MEDICARE ==
[2021-12-07 11:12] VITALS: O2SAT 100
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
[2021-12-07 12:23] VITALS: BP 160/113; PULSE 93
== END 2021-12-07 12:40 | disposition short-term general hospital (02) ==
LOC: ED 10:19
DX: T22.20XA Burn of second degree of shoulder and upper limb, except wrist and hand, unspecified site, initial encounter (principal); T20.17XA Burn of first degree of neck, initial encounter; T22.112A Burn of first degree of left forearm, initial encounter; T31.0 Burns involving less than 10% of body surface; X08.8XXA Exposure to other specified smoke, fire and flames, initial encounter; G80.0 Spastic quadriplegic cerebral palsy; Z72.0 Tobacco use; Z79.899 Other long term (current) drug therapy; Z79.891 Long term (current) use of opiate analgesic
CPT/HCPCS: 99284

== ENCOUNTER 2022-10-08 07:37 | Emergency (ER) | payer MEDICARE ==
[2022-10-08 07:49] VITALS: O2SAT 98
[2022-10-08] MEDS ORDERED: TORAdol 30 mg Injection IM ONE (08:06)
[2022-10-08] MEDS ORDERED: Norflex 60 MG/2 ML IM ONE (08:06)
--- NOTE | 2022-10-08 08:11 | ERPHSYRPT ---
- History of Present Illness Source: patient, other () Exam Limitations: other (Poor historian) Patient Subjective Stated Complaint: Pt states "I have had neck, pain for the past couple days. It hurts to move and it is pulling on my shoulder." Triage Nursing Assessment: Pt presented alert and orietned X 3, skin pwd. Pt ambulates with an unsteady gait, able to speak in complete sentenecs pt has uncontrollable muscle movement. Physician History: 67 yo WM w CP presents w L posterior cervical pain x 3 days. pain is 10 on scale and worse w movement. He denies injury/chest pain/dyspnea/fever/upper extremity weakness-numbness. Timing/Duration: other (3 days) Severity: severe Modifying Factors: Improves With: movement Associated Symptoms: denies symptoms Allergies/Adverse Reactions: No Known Drug Allergies Allergy (Verified 12/07/21 11:12) Home Medications: Baclofen 10 mg [Lioresal 10 mg] 10 mg PO BID 12/07/21 [History] Omeprazole 10 mg PO DAILY 12/07/21 [History] Hx Tetanus, Diphtheria Vaccination/Date Given: No Hx Influenza Vaccination/Date Given: No Hx Pneumococcal Vaccination/Date Given: No Immunizations Up to Date: No Travel Risk - International Travel Have you traveled outside of the country in past 3 weeks: No - Coronavirus Screening Are you exhibiting any of the following symptoms?: No Close contact with a COVID-19 positive Pt in past 14-21 Days: No - Vaccine Status Have you recieved a Covid-19 vaccination: 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: [employer] - Vaccination Dates Date of 2cond Vaccination (if applicable): 2020 - Review of Systems Constitutional: No Symptoms Eyes: No Symptoms Ears, Nose, & Throat: No Symptoms Respiratory: No Symptoms Cardiac: No Symptoms Abdominal/Gastrointestinal: No Symptoms Genitourinary Symptoms: No Symptoms Skin: No Symptoms Neurological: No Symptoms Psychological: No Symptoms Endocrine: No Symptoms Hematologic/Lymphatic: No Symptoms Immunological/Allergic: No Symptoms - Past Medical History Pertinent Past Medical History: Yes Neurological History: Other ENT History: No Pertinent History Cardiac History: No Pertinent History Respiratory History: No Pertinent History Endocrine Medical History: No Pertinent History Musculoskeletal History: Fractures GI Medical History: GI Bleed History: No Pertinent History Psycho-Social History: No Pertinent History Male Reproductive Disorders: No Pertinent History Other Medical History: SPASTIC QUADRIPLEGIC CEREBRAL PALSY SINCE . PATIENT REPORTS BETTER USE OF LEFT ARM VERSUS RIGHT BUT LEGS ABOUT THE SAME. - Past Surgical History Past Surgical History: Yes Neuro Surgical History: No Pertinent History Cardiac: No Pertinent History Respiratory: No Pertinent History Gastrointestinal: Hernia Repair, Other Genitourinary: No Pertinent History Musculoskeletal: Orthopedic Surgery Male Surgical History: No Pertinent History Other Surgical History: feeding tube placed for 2months then removed,L shoulder surgery. EGD with food Bolus - Social History Smoking Status: Current every day smoker How long have you smoked: 53 Exposure to second hand smoke: Yes Drug Use: none Patient Lives Alone: No - Nursing Vital Signs Nursing Vital Signs: Initial Vital Signs Temperature 97.8 F 10/08/22 07:44 Pulse Rate 57 L 10/08/22 07:44 Respiratory Rate 20 10/08/22 07:44 Blood Pressure 135/89 10/08/22 07:44 O2 Sat by Pulse Oximetry 98 10/08/22 07:44 Pain Scale Pain Intensity 4 Bradycardic - Physical Exam General Appearance: no apparent distress (In pain) Eye Exam: PERRL/EOMI, eyes nml inspection Ears, Nose, Throat Exam: normal ENT inspection, TMs normal, pharynx normal, moist mucous membranes Neck Exam: other (L posterior cervical musculature TTP w spasm) Respiratory Exam: normal breath sounds, lungs clear, airway intact, No respiratory distress Cardiovascular Exam: bradycardia, capillary refill <2 sec, No murmur Gastrointestinal/Abdomen Exam: soft, normal bowel sounds, No tenderness Extremity Exam: normal inspection, normal range of motion Neurologic Exam: alert, oriented x 3, 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, 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, normal mood/affect, sensation nml, No motor deficits Skin Exam: normal color, warm, dry, No rash Lymphatic Exam: No adenopathy SpO2 Interpretation: normal SpO2: 98 O2 Delivery: Room Air - Course Nursing assessment & vital signs reviewed: Yes EKG Interpreted by Me: RATE (Sinus little/Rate 52/Normal QT-QTc/Tall T waves/IRBBB) Ordered Tests: Active Orders 24 hr Category Date Time Status EKG-ER Only STAT Care 10/08/22 08:05 Active TROPONIN Q4H Lab 10/08/22 08:30 Completed TROPONIN Q4H Lab 10/08/22 12:15 Ordered TROPONIN Q4H Lab 10/08/22 16:15 Ordered Medication Summary Discontinued Medications Generic Name Dose Route Start Last Admin Trade Name Kelby PRN Reason Stop Dose Admin Ketorolac Tromethamine 15 mg 10/08/22 08:06 10/08/22 08:25 Ketorolac Tromethamine 30 Mg/Ml Inj IM 10/08/22 08:07 15 mg STAT ONE Administration Ketorolac Tromethamine Confirm 10/08/22 08:24 Ketorolac Tromethamine 30 Mg/Ml Inj Administered 10/08/22 08:25 Dose 30 mg .ROUTE .STK-MED ONE Orphenadrine Citrate 60 mg 10/08/22 08:06 10/08/22 08:25 Orphenadrine Citrate 60 Mg/2 Ml Vial IM 10/08/22 08:07 60 mg STAT ONE Administration Orphenadrine Citrate Confirm 10/08/22 08:24 Orphenadrine Citrate 60 Mg/2 Ml Vial Administered 10/08/22 08:25 Dose 60 mg .ROUTE .STK-MED ONE Lab/Rad Data: Laboratory Results 10/08/22 Range/Units 08:30 Troponin I < 0.012 (0.000-0.034) ng/mL - Progress Progress Note: 10/08/22 09:30 Nursing note and vital signs reviewed No food or housing insecurities noted 15mg IM Toradol/60mg IM Norflex w improvement in pain Pt advised to follow up with his family Additional history per 10/08/22 09:32 Counseled pt/family regarding: lab results, diagnosis, need for follow-up Medical Desision Making - Independent Historian Additional History obtained from: Spouse - Risk of complications The pt has a mod risk of morbidity or mortality based on: Need for prescription drug management - Departure Departure Disposition: Home Clinical Impression: Spastic torticollis Condition: Stable Critical Care Time: No Referrals: ELIS GATICA MD [Primary Care Provider] - Follow up/PCP as directed Instructions: Cervical Muscle Strain (DC), Generalized Neck Pain (DC) Additional Instructions: Rest/Heat/Massage Continue w Baclofen Toradol as needed for pain Follow up w your family MD in 1-2 days Prescriptions: Ketorolac Trometh 10 mg Tab [TORAdol 10 MG TABLET] 10 mg PO TID PRN PRN #10 tablet PRN Reason: Pain
[2022-10-08] MEDS ORDERED: Norflex 60 MG/2 ML ONE (08:24)
[2022-10-08] MEDS ORDERED: TORAdol 30 mg Injection ONE (08:24)
[2022-10-08 09:29] VITALS: BP 158/84; PULSE 50
== END 2022-10-08 09:40 | disposition home or self-care (01) ==
LOC: ED 07:37
DX: G24.3 Spasmodic torticollis (principal); G80.0 Spastic quadriplegic cerebral palsy; Z79.899 Other long term (current) drug therapy; Z72.0 Tobacco use
CPT/HCPCS: 36415; 84484; 93005; 96372; 99284; J1885; J2360

== ENCOUNTER 2022-12-20 10:40 | Day surgery (SDC) | payer MEDICARE ==
[2022-12-20] MEDS ORDERED: Depo-Medrol 40 MG/ML IM ONE (10:41)
[2022-12-20] MEDS ORDERED: Sodium Chloride 0.9(Preservative Free) 10 ML IJ ONE (10:41)
[2022-12-20] MEDS ORDERED: DIPRIVAN 200 MG/20 ML IV ONE (13:17)
--- NOTE | 2022-12-20 14:50 | XRAY ---
Indication: Left L4-S1 transforaminal FAUSTINO. Intraoperative fluoroscopy provided for 28 seconds. 4 digital spot image submitted for interpretation demonstrates posterior needle tips projecting over the expected left L4 and L5 nerve roots. Small amount of contrast injected for needle tip placement. Correlate with intraoperative findings/report.
--- NOTE | 2022-12-20 14:59 | XRAY ---
28 seconds of fluoroscopy was used in surgery for a left L4-S1 transforaminal FAUSTINO.
[2022-12-20] MEDS ORDERED: Lactated Ringers 1,000 ML IV ONE (15:00)
== END 2022-12-20 13:46 | disposition home or self-care (01) ==
LOC: SDC-PAIN 10:40
PROVIDERS: ATTEND Psychiatry & Neurology Pain Medicine
DX: M54.16 Radiculopathy, lumbar region (principal); Z79.899 Other long term (current) drug therapy
CPT/HCPCS: 64483; 64484; 72100; 77003; J1030; J2704; Q9966

== ENCOUNTER 2023-05-24 13:41 | Emergency (ER) | payer MEDICARE ==
[2023-05-24 14:32] VITALS: RESP 18; TEMP 97.5
[2023-05-24] MEDS ORDERED: SUBLIMAZE 100 MCG/2 ML IV ONE (14:32)
[2023-05-24] MEDS ORDERED: Zofran 4 MG/2 ML VIAL IV ONE (14:32)
[2023-05-24] MEDS ORDERED: Sodium Chloride 0.9% 1000 ML 1,000 ML IV STA (14:32)
--- NOTE | 2023-05-24 14:45 | ERPHSYRPT ---
- History of Present Illness Time Seen by Provider: 05/24/23 13:44 Source: patient, family Exam Limitations: no limitations Patient Subjective Stated Complaint: pt states he has had a headache for the past month. 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 Patient also has weakness on the right upper and lower extremities and issues with balance lately. Patient has stiffness in the muscles at times which is chronically there and seems like it is getting worse and causing ambulation issues. No fever or chills reported. Denies any fall or trauma to the head and neck area. No chest pain palpitations or shortness of breath. Allergies/Adverse Reactions: No Known Drug Allergies Allergy (Verified 05/24/23 14:15) Home Medications: Baclofen 10 mg [Lioresal 10 mg] 10 mg PO BID 12/07/21 [History] Omeprazole 10 mg PO DAILY 12/07/21 [History] Glycopyrrolate 1 mg PO BID 01/22/23 [History] Ropinirole HCl 0.5 mg [Requip 0.5 MG] 0.5 mg PO DAILY 01/22/23 [History] Amoxicillin 500 mg PO TID 05/24/23 [History] Docusate Sodium 100 mg [Docusate Sodium 100 MG] 100 mg PO DAILY 05/24/23 [History] Hydrocodone/Acetaminophen [Hydrocodone-Acetamin 5-325 mg] 1 tab PO DAILY 0 05/24/23 [History] Hydroxyzine HCl 25 mg [Atarax 25 mg] 25 mg PO DAILY 05/24/23 [History] Pregabalin 75 mg PO HS 05/24/23 [History] atenoloL [Atenolol] 25 mg PO DAILY 05/24/23 [History] Hx Tetanus, Diphtheria Vaccination/Date Given: No Hx Influenza Vaccination/Date Given: Yes Hx Pneumococcal Vaccination/Date Given: No Travel Risk - International Travel Have you traveled outside of the country in past 3 weeks: No - Coronavirus Screening Are you exhibiting any of the following symptoms?: No Close contact with a COVID-19 positive Pt in past 14-21 Days: No - Vaccine Status Have you recieved a Covid-19 vaccination: Yes 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[place]-[employer] - Vaccination Dates Date of 2cond Vaccination (if applicable): 2020 - Review of Systems Constitutional: No Symptoms Eyes: No Symptoms Ears, Nose, & Throat: No Symptoms Respiratory: No Symptoms Cardiac: No Symptoms Abdominal/Gastrointestinal: No Symptoms Genitourinary Symptoms: No Symptoms Musculoskeletal: Arthralgias, Neck Pain Skin: No Symptoms Neurological: Headache Endocrine: No Symptoms - Past Medical History Pertinent Past Medical History: Yes Neurological History: Other ENT History: No Pertinent History Cardiac History: No Pertinent History Respiratory History: COPD Endocrine Medical History: No Pertinent History Musculoskeletal History: Osteoarthritis GI Medical History: GI Bleed History: No Pertinent History Psycho-Social History: No Pertinent History Male Reproductive Disorders: No Pertinent History Other Medical History: OA TO BOTH SHOULDERS, HIPS (RIGHT WORST THAN LEFT), HANDS, ETC. - Past Surgical History Past Surgical History: Yes Neuro Surgical History: No Pertinent History Cardiac: No Pertinent History Respiratory: No Pertinent History Gastrointestinal: Hernia Repair, Other Genitourinary: No Pertinent History Musculoskeletal: Orthopedic Surgery Male Surgical History: No Pertinent History Other Surgical History: feeding tube placed for 2months then removed,L shoulder surgery. EGD with food Bolus - Social History Smoking Status: Current every day smoker How long have you smoked: 53 Exposure to second hand smoke: Yes Drug Use: none Patient Lives Alone: No - Nursing Vital Signs Nursing Vital Signs: Initial Vital Signs Temperature 97.5 F 05/24/23 14:19 Pulse Rate 65 05/24/23 14:19 Respiratory Rate 18 05/24/23 14:19 Blood Pressure 128/64 05/24/23 14:19 O2 Sat by Pulse Oximetry 95 05/24/23 14:19 Pain Scale Pain Intensity 5 - Physical Exam General Appearance: no apparent distress, alert, cachetic Eye Exam: PERRL/EOMI Ears, Nose, Throat Exam: normal ENT inspection Neck Exam: normal inspection, non-tender, supple, full range of motion Respiratory Exam: normal breath sounds, lungs clear Cardiovascular Exam: regular rate/rhythm, normal heart sounds Gastrointestinal/Abdomen Exam: soft, No tenderness Back Exam: muscle spasm Extremity Exam: normal inspection Neurologic Exam: alert, oriented x 3, cooperative, sensation nml Skin Exam: normal color SpO2 Interpretation: normal SpO2: 95 O2 Delivery: Room Air Ordered Tests: Active Orders 24 hr Category Date Time Status IV Insertion STAT Care 05/24/23 14:32 Active CERVICAL SPINE WO CONTRAST [CT] Stat Exams 05/24/23 14:31 Completed HEAD WITHOUT CONTRAST [CT] Stat Exams 05/24/23 14:31 Completed CBC W DIFF Stat Lab 05/24/23 14:50 Completed CK (IN-HOUSE) [CK-Creatinine Phosphokinase] Stat Lab 05/24/23 14:50 Completed CMP Stat Lab 05/24/23 14:50 Completed MAG [MAGNESIUM] Stat Lab 05/24/23 14:50 Completed UA W/RFX UR CULTURE Stat Lab 05/24/23 16:09 Completed Medication Summary Discontinued Medications Generic Name Dose Route Start Last Admin Trade Name Thorq PRN Reason Stop Dose Admin Fentanyl Citrate 50 mcg 05/24/23 14:32 05/24/23 15:01 Fentanyl Citrate 100 Mcg/2 Ml* Vial IV 05/24/23 14:33 50 mcg STAT ONE Administration Fentanyl Citrate Confirm 05/24/23 14:57 Fentanyl Citrate 100 Mcg/2 Ml* Vial Administered 05/24/23 14:58 Dose 100 mcg .ROUTE .STK-MED ONE Sodium Chloride 1,000 mls @ 999 mls/hr 05/24/23 14:32 05/24/23 16:05 Sodium Chloride 0.9% 1000 Ml IV 05/24/23 15:32 Infused .Q1H1M STA Infusion Sodium Chloride Confirm 05/24/23 14:57 Sodium Chloride 0.9% 1000 Ml Administered 05/24/23 14:58 Dose 1,000 mls @ ud .ROUTE .STK-MED ONE Ondansetron HCl 4 mg 05/24/23 14:32 05/24/23 15:01 Ondansetron Hcl 4 Mg/2 Ml Vial IV 05/24/23 14:33 4 mg STAT ONE Administration Ondansetron HCl Confirm 05/24/23 14:56 Ondansetron Hcl 4 Mg/2 Ml Vial Administered 05/24/23 14:57 Dose 4 mg .ROUTE .STK-MED ONE Lab/Rad Data: Laboratory Result Diagrams 05/24/23 14:50 05/24/23 14:50 Laboratory Results 05/24/23 05/24/23 05/24/23 Range/Units 16:09 14:50 14:50 WBC 5.3 (4.0-10.5) x10^3/uL RBC 4.63 (4.1-5.6) x10^6/uL Hgb 13.0 (12.5-18.0) g/dL Hct 39.0 L (42-50) % MCV 84.2 (78-100) fL MCH 28.1 (26-32) pg MCHC 33.3 (32-36) g/dL RDW 12.6 (11.5-14.0) % Plt Count 63 L (150-450) x10^3/uL MPV 9.4 (7.5-11.0) fL Gran % 64.1 (36.0-66.0) % Immature Gran % (Auto) 0.4 (0.00-0.4) % Nucleat RBC Rel Count 0.0 (0.00-0.1) % Eos # (Auto) 0.19 (0-0.5) x10^3/uL Immature Gran # (Auto) 0.02 (0.00-0.03) x10^3u/L Absolute Lymphs (auto) 1.39 (1.0-4.6) x10^3/uL Absolute Monos (auto) 0.29 (0.0-1.3) x10^3/uL Absolute Nucleated RBC 0.00 (0.00-0.01) x10^3u/L Lymphocytes % 26.1 (24.0-44.0) % Monocytes % 5.4 (0.0-12.0) % Eosinophils % 3.6 (0.00-5.0) % Basophils % 0.4 (0.0-0.4) % Absolute Granulocytes 3.42 (1.4-6.9) x10^3/uL Basophils # 0.02 (0-0.4) x10^3/uL Sodium 135 L (137-145) mmol/L Potassium 4.6 (3.5-5.1) mmol/L Chloride 99 (98-107) mmol/L Carbon Dioxide 28 (22-30) mmol/L Anion Gap 11.7 (5-15) MEQ/L BUN 15 (9-20) mg/dL Creatinine 1.09 (0.66-1.25) mg/dL Estimated GFR 73.5 ML/MIN Glucose 99 (74-106) mg/dL Calcium 10.1 (8.4-10.2) mg/dL Magnesium 2.1 (1.6-2.3) mg/dL Total Bilirubin 0.70 (0.2-1.3) mg/dL AST 23 (17-59) U/L ALT 15 (0-50) U/L Alkaline Phosphatase 135 H (38-126) U/L Creatine Kinase 32 L (55-170) U/L Serum Total Protein 7.9 (6.3-8.2) g/dL Albumin 4.1 (3.5-5.0) g/dL Urine Color Yellow (Yellow) Urine Appearance Clear (Clear) Urine pH 5.5 (4.6-8.0) Ur Specific [place] 1.020 (1.005-1.030) Urine Protein Negative (Negative) Urine Glucose (UA) Negative (Negative) mg/dL Urine Ketones Trace A (Negative) Urine Blood Negative (Negative) Urine Nitrite Negative (Negative) Urine Bilirubin Negative (Negative) Urine Urobilinogen 0.2 (0.2) mg/dL Ur Leukocyte Esterase Negative (Negative) U Hyaline Cast (Auto) NONE SEEN (0-2) /LPF Urine Microscopic RBC 0-2 (0-5) /HPF Urine Microscopic WBC 0-2 (0-5) /HPF Ur Epithelial Cells None Seen (None Seen) /HPF Urine Bacteria None Seen (None Seen) /HPF Urine Culture Reflexed NO (NO) Slides for Path Review YES - Progress Progress: improved Progress Note: 05/24/23 16:58 67-year-old with a history of cerebral palsy with increased tone/stiffness in the upper and lower extremities currently on pain management is evaluated in the ER with increasing pain on the right side head and neck area with reference of neck movement on the left side. No trauma or fall reported. Has some increase muscle tone/getting imbalance while ambulating lately. Obtained CT head which showed old changes and no new findings. Patient cervical spine also has some osteopenia/degenerative changes with C7-T1 disc mild bulging. Recommended outpatient follow-up with primary care and pain management and will also give referral for neurosurgery. Discussed about taking hydrocodone which she has at home on a regular basis. Has normal white count, fairly unremarkable chemistries [place] no signs symptoms suggesting meningitis/epidural hematoma/abscess or etc. Stable for discharge. Counseled pt/family regarding: lab results, diagnosis, need for follow-up, rad results Medical Desision Making - Independent Historian Additional History obtained from: Spouse - Diagnostic Testing Diagnostic test were ordered, analyzed, and reviewed by me: Yes Radiological Interpretation: Reviewed by me - Departure Departure Disposition: Home Clinical Impression: Cervicalgia, Neck muscle spasm Condition: Stable Critical Care Time: No Referrals: ELIS GATICA MD [Primary Care Provider] - Follow up with PCP 1 day Instructions: Headache, Adult (DC), Torticollis (DC) Additional Instructions: Continue with your current muscle relaxants. Take hydrocodone as needed. Follow-up with pain management and primary care and may need a referral for neurosurgery for further evaluation. Return to ER for intractable pain or if having numbness weakness of extremities etc.
[2023-05-24] MEDS ORDERED: Zofran 4 MG/2 ML VIAL ONE (14:56)
[2023-05-24] MEDS ORDERED: SUBLIMAZE 100 MCG/2 ML ONE (14:57)
[2023-05-24] MEDS ORDERED: Sodium Chloride 0.9% 1000 ML 1,000 ML ONE (14:57)
[2023-05-24 15:04] LABS: Absolute Neutrophil Ct (ANC) 3.42 x10^3/uL (1.4-6.9); BASOPHIL % 0.4 % (0.0-0.4); Basophil (Absolute #) 0.02 x10^3/uL (0-0.4); Eosinophil % 3.6 % (0.00-5.0); Eosinophil (Absolute #) 0.19 x10^3/uL (0-0.5); IMMATURE GRAN # 0.02 x10^3u/L (0.00-0.03); IMMATURE GRAN % 0.4 % (0.00-0.4); Lymphocyte (Absolute #) 1.39 x10^3/uL (1.0-4.6); Lymphocytes % 26.1 % (24.0-44.0); Mean Cell Volume 84.2 fL (78-100); Mean Corpuscular Hemoglobin 28.1 pg (26-32); Mean Corpuscular Hgb Concent. 33.3 g/dL (32-36); Mean Platelet Volume 9.4 fL (7.5-11.0); Monocyte (Absolute #) 0.29 x10^3/uL (0.0-1.3); Monocytes % 5.4 % (0.0-12.0); Neutrophil % 64.1 % (36.0-66.0); Platelet Count 63 x10^3/uL (150-450); Red Blood Count 4.63 x10^6/uL (4.1-5.6); Red Cell Distribution Width 12.6 % (11.5-14.0); White Blood Count 5.3 x10^3/uL (4.0-10.5)
[2023-05-24 15:15] LABS: ALBUMIN 4.1 g/dL (3.5-5.0); ANION GAP 11.7 MEQ/L (5-15); BILIRUBIN,TOTAL 0.7 mg/dL (0.2-1.3); Calcium 10.1 mg/dL (8.4-10.2); Creatinine 1 1.09 mg/dL (0.66-1.25); EST GLOMERULAR FILTRATION RATE 73.5 ML/MIN; MAGNESIUM 2.1 mg/dL (1.6-2.3); Potassium 4.6 mmol/L (3.5-5.1); Total Protein 7.9 g/dL (6.3-8.2)
[2023-05-24 16:01] LABS: Slide Review 1 YES
[2023-05-24 16:14] VITALS: BP 103/56
[2023-05-24 16:21] LABS: Appearance Clear (Clear); Bacteria None Seen /HPF (None Seen); Bilirubin Negative (Negative); Blood Negative (Negative); Epithelial Cells None Seen /HPF (None Seen); Glucose, Urine Negative (Negative); Hyaline Casts NONE SEEN /LPF (0-2); Ketones Trace (Negative); Leukocyte Esterase Negative (Negative); Nitrite Negative (Negative); Ph 5.5 (4.6-8.0); Protein,Urine Dip Negative (Negative); RBC 0-2 /HPF (0-5); Urobilinogen 0.2 mg/dL (0.2); WBC 0-2 /HPF (0-5)
[2023-05-24 16:24] LABS: ADD URINE CULTURE? NO (NO)
--- NOTE | 2023-05-24 16:25 | XRAY ---
Indication: Headache 1 month. Stroke. Multiple contiguous axial images obtained through the head without contrast. Comparison: None Age-appropriate global atrophy and mild periventricular degenerative micro-ischemia bilaterally. Basal ganglia demonstrates remote lacunar infarcts bilaterally. Additional remote lacunar infarct left mid centrum semiovale. No acute intracranial hemorrhage, abnormal extra-axial fluid collection, or mass effect. Fourth ventricle is midline without hydrocephalus. Bony calvarium intact. Visualized paranasal sinuses and mastoid air cells are clear. Impression: Nonacute senile brain with multifocal remote lacunar infarcts as detailed.
--- NOTE | 2023-05-24 16:29 | XRAY ---
Indication: Headache 1 month. Stroke. Right neck pain. Multiple contiguous axial images obtained through the head without contrast. Comparison: November 15, 2020 Stable age-related osteopenia. Axial images again negative for acute fracture, suspicious bony lesions, or spinal canal stenosis. Again moderate/advanced lateral axial degenerative changes, broad-based C7-T1 disc bulge, and moderate/advanced bilateral degenerative facet hypertrophy. Sagittal and coronal reformatted images again demonstrates lordotic straightening, positional versus paraspinal spasm. Stable C6-C7 disc space narrowing. No acute compression fracture, subluxation, or jumped facet. Normal appearing craniocervical junction. Visualized noncontrasted soft tissues again demonstrates moderate bilateral carotid calcifications. Lung apices again demonstrates pulmonary emphysema with fibrosis/scarring. Impression: Again chronic findings including osteopenia, multilevel degenerative spondylosis with C7-T1 disc bulge, lordotic straightening, bilateral carotid calcifications, pulmonary emphysema, and biapical pulmonary fibrosis/scarring. No new/acute abnormalities.
[2023-05-24 17:01] VITALS: PULSE 60
[2023-05-24 17:02] VITALS: O2SAT 95
== END 2023-05-24 17:11 | disposition home or self-care (01) ==
LOC: ED 13:41
DX: M54.2 Cervicalgia (principal); M62.838 Other muscle spasm; R53.1 Weakness; Z79.891 Long term (current) use of opiate analgesic; Z79.899 Other long term (current) drug therapy; Z72.0 Tobacco use
CPT/HCPCS: 36000; 36415; 70450; 72125; 80053; 81001; 82550; 83735; 85025; 96374; 96375; 99284; J2405; J3010

== ENCOUNTER 2023-05-30 12:24 | Emergency (ER) | payer MEDICARE ==
--- NOTE | 2023-05-30 12:31 | ERPHSYRPT ---
- History of Present Illness Time Seen by Provider: 05/30/23 12:30 Source: patient, family, old records Exam Limitations: clinical condition Physician History: This is a 67-year-old white male patient of Dr. Gatica who has a history of cerebral palsy and was brought to the emergency department by the patient's family secondary to weakness/slumping over that occurred at 8 AM prior to arrival. Patient has a history of gastroesophageal reflux disease, COPD and osteoarthritis. Patient did hit his head 2 days ago when he slipped and fell per patient's spouse history. Patient's spouse provided additional, independent history secondary to the patient's difficulty in communicating secondary to his cerebral palsy. Patient's said that he seems to be speaking a little differently. She is less able to understand what he saying. He is also had some confusion. Patient was not brought in earlier because she did not have a ride to take him there and waited for their son to get home. Patient refused to come in yesterday. Patient does have aches and pains in several different areas of his body. He is not short of breath. He has no abdominal pain. He has no nausea vomiting or diarrhea symptoms. He has no fever. I have seen this patient's several times in the emergency department. He appears to me to be at his baseline. Patient's does state that his symptoms have improved prior to her arriving to the emergency department Timing/Duration: today Severity: mild Character of Deficits: impaired speech Baseline/Normal Cognition: alert oriented x 3 Current Cognition: alert oriented x 3 Baseline Gait: walks w/o assistance Associated Symptoms: other (Change in his speech) Allergies/Adverse Reactions: No Known Drug Allergies Allergy (Verified 05/30/23 12:30) Home Medications: Baclofen 10 mg [Lioresal 10 mg] 10 mg PO BID 12/07/21 [History] Omeprazole 10 mg PO DAILY 12/07/21 [History] Glycopyrrolate 1 mg PO BID 01/22/23 [History] Ropinirole HCl 0.5 mg [Requip 0.5 MG] 0.5 mg PO DAILY 01/22/23 [History] Amoxicillin 500 mg PO TID 05/24/23 [History] Docusate Sodium 100 mg [Docusate Sodium 100 MG] 100 mg PO DAILY 05/24/23 [History] Hydrocodone/Acetaminophen [Hydrocodone-Acetamin 5-325 mg] 1 tab PO DAILY 05/24/23 [History] Hydroxyzine HCl 25 mg [Atarax 25 mg] 25 mg PO DAILY 05/24/23 [History] Pregabalin 75 mg PO HS 05/24/23 [History] atenoloL [Atenolol] 25 mg PO DAILY 05/24/23 [History] Hx Tetanus, Diphtheria Vaccination/Date Given: No Hx Influenza Vaccination/Date Given: Yes Hx Pneumococcal Vaccination/Date Given: No Travel Risk - International Travel Have you traveled outside of the country in past 3 weeks: No - Coronavirus Screening Are you exhibiting any of the following symptoms?: No Close contact with a COVID-19 positive Pt in past 14-21 Days: No - Vaccine Status Have you recieved a Covid-19 vaccination: Yes [employer]: [employer] - Vaccination Dates Date of 2cond Vaccination (if applicable): 2020 - Review of Systems Constitutional: No Symptoms Eyes: No Symptoms Ears, Nose, & Throat: No Symptoms Respiratory: No Symptoms Cardiac: No Symptoms Abdominal/Gastrointestinal: No Symptoms Genitourinary Symptoms: No Symptoms Musculoskeletal: No Symptoms Skin: No Symptoms Neurological: Speech Changes Psychological: No Symptoms Endocrine: No Symptoms Hematologic/Lymphatic: No Symptoms Immunological/Allergic: No Symptoms All Other Systems: Reviewed and Negative - Past Medical History Pertinent Past Medical History: Yes Neurological History: Other ENT History: No Pertinent History Cardiac History: No Pertinent History Respiratory History: COPD Endocrine Medical History: No Pertinent History Musculoskeletal History: Osteoarthritis GI Medical History: GI Bleed History: No Pertinent History Psycho-Social History: No Pertinent History Male Reproductive Disorders: No Pertinent History Other Medical History: OA TO BOTH SHOULDERS, HIPS (RIGHT WORST THAN LEFT), HANDS, ETC. - Past Surgical History Past Surgical History: Yes Neuro Surgical History: No Pertinent History Cardiac: No Pertinent History Respiratory: No Pertinent History Gastrointestinal: Hernia Repair, Other Genitourinary: No Pertinent History Musculoskeletal: Orthopedic Surgery Male Surgical History: No Pertinent History Other Surgical History: feeding tube placed for 2months then removed,L shoulder surgery. EGD with food Bolus - Social History Smoking Status: Current every day smoker How long have you smoked: 53 Exposure to second hand smoke: Yes Drug Use: none Patient Lives Alone: No - Nursing Vital Signs Nursing Vital Signs: Initial Vital Signs Temperature 97.6 F 05/30/23 12:30 Pulse Rate 60 05/30/23 12:30 Respiratory Rate 18 05/30/23 12:30 Blood Pressure 130/61 05/30/23 12:30 O2 Sat by Pulse Oximetry 98 05/30/23 12:30 Pain Scale Pain Intensity 6 - [place] Coma Scale Best Eye Response ([place]): (4) open spontaneously Best Verbal Response ([place]): (5) oriented Best Motor Response ([place]): (6) obeys commands [place] Total: 15 - Physical Exam General Appearance: no apparent distress, alert, anxiety, thin Eye Exam: bilateral eye: normal inspection, PERRL, EOMI Ears, Nose, Throat Exam: dry mucous membranes Respiratory: normal breath sounds, lungs clear, airway intact, No chest tenderness, No respiratory distress Cardiovascular: regular rate/rhythm, normal heart sounds, normal peripheral pulses Gastrointestinal: soft, normal bowel sounds, No tenderness Rectal Exam: not done Back Exam: normal inspection, normal range of motion, No CVA tenderness Extremity Exam: normal range of motion, pelvis stable, other (Patient does hold his upper extremities and unusual positions secondary to his cerebral palsy. 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 Exam: normal hearing, PERRL, tongue midline Skin Exam: normal color, warm, dry SpO2 Interpretation: normal O2 Delivery: Room Air - Course Nursing assessment & vital signs reviewed: Yes Ordered Tests: Active Orders 24 hr Category Date Time Status Practice Coordinator STAT Care 05/30/23 12:48 Active EKG-ER Only STAT Care 05/30/23 12:47 Active HEAD WITHOUT CONTRAST [CT] Stat Exams 05/30/23 12:25 Completed CBC W DIFF Stat Lab 05/30/23 13:30 Completed CMP Stat Lab 05/30/23 13:30 Completed ETHYL ALCOHOL Stat Lab 05/30/23 13:30 Completed MONO SCREEN Stat Lab 05/30/23 13:30 Completed POCT GLUCOSE Stat Lab 05/30/23 12:34 Completed PROTIME WITH INR Stat Lab 05/30/23 13:30 Completed TROPONIN Q4H Lab 05/30/23 13:30 Completed TROPONIN Q4H Lab 05/30/23 17:00 Ordered TROPONIN Q4H Lab 05/30/23 21:00 Ordered TSH, 3RD Generation Stat Lab 05/30/23 13:30 Completed UA W/RFX UR CULTURE Stat Lab 05/30/23 15:20 Completed Medication Summary Generic Name Dose Route Start Last Admin Trade Name Kleby PRN Reason Stop Dose Admin Sodium Chloride 1,000 mls @ 100 mls/hr 05/30/23 13:00 Sodium Chloride 0.9% 1000 Ml IV 06/29/23 12:59 .Q10H LEEANNA Lab/Rad Data: Laboratory Result Diagrams 05/30/23 13:30 05/30/23 13:30 Laboratory Results 05/30/23 05/30/23 05/30/23 Range/Units 15:20 13:30 13:30 WBC (4.0-10.5) x10^3/uL RBC (4.1-5.6) x10^6/uL Hgb (12.5-18.0) g/dL Hct (42-50) % MCV (78-100) fL MCH (26-32) pg MCHC (32-36) g/dL RDW (11.5-14.0) % Plt Count (150-450) x10^3/uL MPV (7.5-11.0) fL Gran % (36.0-66.0) % Immature Gran % (Auto) (0.00-0.4) % Nucleat RBC Rel Count (0.00-0.1) % Eos # (Auto) (0-0.5) x10^3/uL Immature Gran # (Auto) (0.00-0.03) x10^3u/L Absolute Lymphs (auto) (1.0-4.6) x10^3/uL Absolute Monos (auto) (0.0-1.3) x10^3/uL Absolute Nucleated RBC (0.00-0.01) x10^3u/L Lymphocytes % (24.0-44.0) % Monocytes % (0.0-12.0) % Eosinophils % (0.00-5.0) % Basophils % (0.0-0.4) % Absolute Granulocytes (1.4-6.9) x10^3/uL Basophils # (0-0.4) x10^3/uL PT (9.4-12.5) SECONDS INR (0.8-3.0) Sodium (137-145) mmol/L Potassium (3.5-5.1) mmol/L Chloride (98-107) mmol/L Carbon Dioxide (22-30) mmol/L Anion Gap (5-15) MEQ/L BUN (9-20) mg/dL Creatinine (0.66-1.25) mg/dL Estimated GFR ML/MIN Glucose (74-106) mg/dL POC Glucometer (74 to 106) mg/dL Calcium (8.4-10.2) mg/dL Total Bilirubin (0.2-1.3) mg/dL AST (17-59) U/L ALT (0-50) U/L Alkaline Phosphatase (38-126) U/L Troponin I (0.000-0.034) ng/mL Serum Total Protein (6.3-8.2) g/dL Albumin (3.5-5.0) g/dL Free T4 4.99 H (0.78-2.19) ng/dL TSH 3rd Generation (0.47-4.68) mIU/L Urine Color Dark Yellow (Yellow) Urine Appearance Clear (Clear) Urine pH 5.5 (4.6-8.0) Ur Specific [place] 1.025 (1.005-1.030) Urine Protein Trace A (Negative) Urine Glucose (UA) Negative (Negative) mg/dL Urine Ketones Negative (Negative) Urine Blood Negative (Negative) Urine Nitrite Negative (Negative) Urine Bilirubin Negative (Negative) Urine Urobilinogen 1.0 A (0.2) mg/dL Ur Leukocyte Esterase Negative (Negative) U Hyaline Cast (Auto) 3-5 A (0-2) /LPF Urine Microscopic RBC 0-2 (0-5) /HPF Urine Microscopic WBC 0-2 (0-5) /HPF Ur Epithelial Cells None Seen (None Seen) /HPF Urine Bacteria None Seen (None Seen) /HPF Urine Culture Reflexed NO (NO) Ethyl Alcohol (0-10) mg/dL Monoscreen NEGATIVE (NEGATIVE) Influenza Type A Ag (NEGATIVE) Influenza Type B Ag (NEGATIVE) RSV (PCR) (NEGATIVE) SARS-CoV-2 (PCR) (NEGATIVE) Slides for Path Review 05/30/23 05/30/23 05/30/23 Range/Units 13:30 13:30 13:30 WBC (4.0-10.5) x10^3/uL RBC (4.1-5.6) x10^6/uL Hgb (12.5-18.0) g/dL Hct (42-50) % MCV (78-100) fL MCH (26-32) pg MCHC (32-36) g/dL RDW (11.5-14.0) % Plt Count (150-450) x10^3/uL MPV (7.5-11.0) fL Gran % (36.0-66.0) % Immature Gran % (Auto) (0.00-0.4) % Nucleat RBC Rel Count (0.00-0.1) % Eos # (Auto) (0-0.5) x10^3/uL Immature Gran # (Auto) (0.00-0.03) x10^3u/L Absolute Lymphs (auto) (1.0-4.6) x10^3/uL Absolute Monos (auto) (0.0-1.3) x10^3/uL Absolute Nucleated RBC (0.00-0.01) x10^3u/L Lymphocytes % (24.0-44.0) % Monocytes % (0.0-12.0) % Eosinophils % (0.00-5.0) % Basophils % (0.0-0.4) % Absolute Granulocytes (1.4-6.9) x10^3/uL Basophils # (0-0.4) x10^3/uL PT 12.8 H (9.4-12.5) SECONDS INR 1.19 (0.8-3.0) Sodium 136 L (137-145) mmol/L Potassium 4.1 (3.5-5.1) mmol/L Chloride 103 (98-107) mmol/L Carbon Dioxide 26 (22-30) mmol/L Anion Gap 11.1 (5-15) MEQ/L BUN 16 (9-20) mg/dL Creatinine 0.97 (0.66-1.25) mg/dL Estimated GFR 84.5 ML/MIN Glucose 105 (74-106) mg/dL POC Glucometer (74 to 106) mg/dL Calcium 9.7 (8.4-10.2) mg/dL Total Bilirubin 0.70 (0.2-1.3) mg/dL AST 20 (17-59) U/L ALT 15 (0-50) U/L Alkaline Phosphatase 136 H (38-126) U/L Troponin I < 0.012 (0.000-0.034) ng/mL Serum Total Protein 7.3 (6.3-8.2) g/dL Albumin 3.9 (3.5-5.0) g/dL Free T4 (0.78-2.19) ng/dL TSH 3rd Generation < 0.015 L (0.47-4.68) mIU/L Urine Color (Yellow) Urine Appearance (Clear) Urine pH (4.6-8.0) Ur Specific [place] (1.005-1.030) Urine Protein (Negative) Urine Glucose (UA) (Negative) mg/dL Urine Ketones (Negative) Urine Blood (Negative) Urine Nitrite (Negative) Urine Bilirubin (Negative) Urine Urobilinogen (0.2) mg/dL Ur Leukocyte Esterase (Negative) U Hyaline Cast (Auto) (0-2) /LPF Urine Microscopic RBC (0-5) /HPF Urine Microscopic WBC (0-5) /HPF Ur Epithelial Cells (None Seen) /HPF Urine Bacteria (None Seen) /HPF Urine Culture Reflexed (NO) Ethyl Alcohol < 10 (0-10) mg/dL Monoscreen (NEGATIVE) Influenza Type A Ag (NEGATIVE) Influenza Type B Ag (NEGATIVE) RSV (PCR) (NEGATIVE) SARS-CoV-2 (PCR) (NEGATIVE) Slides for Path Review 05/30/23 05/30/23 05/30/23 Range/Units 13:30 13:20 12:34 WBC 6.2 (4.0-10.5) x10^3/uL RBC 4.18 (4.1-5.6) x10^6/uL Hgb 11.7 L (12.5-18.0) g/dL Hct 35.8 L (42-50) % MCV 85.6 (78-100) fL MCH 28.0 (26-32) pg MCHC 32.7 (32-36) g/dL RDW 12.9 (11.5-14.0) % Plt Count 61 L (150-450) x10^3/uL MPV 9.7 (7.5-11.0) fL Gran % 68.8 H (36.0-66.0) % Immature Gran % (Auto) 0.3 (0.00-0.4) % Nucleat RBC Rel Count 0.0 (0.00-0.1) % Eos # (Auto) 0.17 (0-0.5) x10^3/uL Immature Gran # (Auto) 0.02 (0.00-0.03) x10^3u/L Absolute Lymphs (auto) 1.30 (1.0-4.6) x10^3/uL Absolute Monos (auto) 0.43 (0.0-1.3) x10^3/uL Absolute Nucleated RBC 0.00 (0.00-0.01) x10^3u/L Lymphocytes % 21.0 L (24.0-44.0) % Monocytes % 6.9 (0.0-12.0) % Eosinophils % 2.7 (0.00-5.0) % Basophils % 0.3 (0.0-0.4) % Absolute Granulocytes 4.25 (1.4-6.9) x10^3/uL Basophils # 0.02 (0-0.4) x10^3/uL PT (9.4-12.5) SECONDS INR (0.8-3.0) Sodium (137-145) mmol/L Potassium (3.5-5.1) mmol/L Chloride (98-107) mmol/L Carbon Dioxide (22-30) mmol/L Anion Gap (5-15) MEQ/L BUN (9-20) mg/dL Creatinine (0.66-1.25) mg/dL Estimated GFR ML/MIN Glucose (74-106) mg/dL POC Glucometer 80 (74 to 106) mg/dL Calcium (8.4-10.2) mg/dL Total Bilirubin (0.2-1.3) mg/dL AST (17-59) U/L ALT (0-50) U/L Alkaline Phosphatase (38-126) U/L Troponin I (0.000-0.034) ng/mL Serum Total Protein (6.3-8.2) g/dL Albumin (3.5-5.0) g/dL Free T4 (0.78-2.19) ng/dL TSH 3rd Generation (0.47-4.68) mIU/L Urine Color (Yellow) Urine Appearance (Clear) Urine pH (4.6-8.0) Ur Specific [place] (1.005-1.030) Urine Protein (Negative) Urine Glucose (UA) (Negative) mg/dL Urine Ketones (Negative) Urine Blood (Negative) Urine Nitrite (Negative) Urine Bilirubin (Negative) Urine Urobilinogen (0.2) mg/dL Ur Leukocyte Esterase (Negative) U Hyaline Cast (Auto) (0-2) /LPF Urine Microscopic RBC (0-5) /HPF Urine Microscopic WBC (0-5) /HPF Ur Epithelial Cells (None Seen) /HPF Urine Bacteria (None Seen) /HPF Urine Culture Reflexed (NO) Ethyl Alcohol (0-10) mg/dL Monoscreen (NEGATIVE) Influenza Type A Ag NEGATIVE (NEGATIVE) Influenza Type B Ag NEGATIVE (NEGATIVE) RSV (PCR) NEGATIVE (NEGATIVE) SARS-CoV-2 (PCR) NEGATIVE (NEGATIVE) Slides for Path Review YES - Progress Progress: unchanged Progress Note: 05/30/23 13:05 This patient's medical issue is 1 of moderate complexity. The level of complexity in the workup performed is based on review of the patient's past medical history, review of the patient's medication list, review the patient's drug allergy list, history present illness and physical findings on examination. This patient's workup includes placement of intravenous line, twelve-lead EKG, troponin level, T4 and TSH levels, CMP, CBC, ethyl alcohol level, urinalysis, CT scan of the head. 05/30/23 13:22 CT scan of the head without contrast was compared to CT scan without contrast performed on 05/24/2023. This study was interpreted by the radiologist and I reviewed the impression. The process is nonacute senile brain with multifocal remote lacunar infarcts. 05/30/23 16:12 According to the patient's spouse and my examination of him, the patient is at his baseline. There is no evidence of any acute cerebral infarction present. Patient desires to be discharged to home. 05/30/23 16:13 I interpreted the patient's laboratory data results. Patient has no evidence of any acute, emergent medical issue at this time. Counseled pt/family regarding: lab results, diagnosis, rad results Medical Desision Making - Independent Historian Additional History obtained from: Spouse - Diagnostic Testing Diagnostic test were ordered, analyzed, and reviewed by me: Yes Radiological Interpretation: Reviewed by me, Teleradiologist Report - Risk of complications Low Risk: Low risk of morbidity from additional dx testing or treatment - Departure Departure Disposition: Home Clinical Impression: Weakness Condition: Stable Critical Care Time: No Referrals: ELIS GATICA MD [Primary Care Provider] - Follow up/PCP as directed Additional Instructions: Take all your medications as prescribed. Call your primary care provider tomorrow morning, 05/31/2023, to make arrangements for further evaluation management the next 3 to 5 days.
--- NOTE | 2023-05-30 12:42 | XRAY ---
Indication: Altered mental status. Stroke. Multiple contiguous axial images obtained through the head without contrast. Comparison: May 24, 2023 Stable age-appropriate global atrophy, mild periventricular degenerative micro-ischemia bilaterally, and remote lacunar infarcts both basal ganglia/left centrum semiovale. No acute intracranial hemorrhage, abnormal extra-axial fluid collection, or mass effect. Fourth ventricle is midline without hydrocephalus. Bony calvarium intact. Visualized paranasal sinuses and mastoid air cells are clear. Impression: Again nonacute senile brain with multifocal remote lacunar infarcts.
[2023-05-30 12:47] VITALS: BP 130/61; PULSE 60; RESP 18; TEMP 97.6; O2SAT 98
[2023-05-30] MEDS ORDERED: Sodium Chloride 0.9% 1000 ML 1,000 ML IV SCH (13:00)
[2023-05-30 13:38] LABS: Absolute Neutrophil Ct (ANC) 4.25 x10^3/uL (1.4-6.9); BASOPHIL % 0.3 % (0.0-0.4); Basophil (Absolute #) 0.02 x10^3/uL (0-0.4); Eosinophil % 2.7 % (0.00-5.0); Eosinophil (Absolute #) 0.17 x10^3/uL (0-0.5); Hematocrit 35.8 % (42-50); Hemoglobin 11.7 g/dL (12.5-18.0); IMMATURE GRAN # 0.02 x10^3u/L (0.00-0.03); IMMATURE GRAN % 0.3 % (0.00-0.4); Mean Cell Volume 85.6 fL (78-100); Mean Corpuscular Hgb Concent. 32.7 g/dL (32-36); Mean Platelet Volume 9.7 fL (7.5-11.0); Monocyte (Absolute #) 0.43 x10^3/uL (0.0-1.3); Monocytes % 6.9 % (0.0-12.0); Neutrophil % 68.8 % (36.0-66.0); Platelet Count 61 x10^3/uL (150-450); Red Blood Count 4.18 x10^6/uL (4.1-5.6); Red Cell Distribution Width 12.9 % (11.5-14.0); White Blood Count 6.2 x10^3/uL (4.0-10.5)
[2023-05-30 13:52] LABS: INR 1.19 (0.8-3.0); PROTIME 12.8 SECONDS (9.4-12.5)
[2023-05-30 13:58] LABS: INFLUENZA A NEGATIVE (NEGATIVE); INFLUENZA B NEGATIVE (NEGATIVE); RESPIRATORY SYNCTIAL VIRUS NEGATIVE (NEGATIVE); SARS-CoV-2 Xpert Express NEGATIVE (NEGATIVE)
[2023-05-30 14:13] LABS: Slide Review 1 YES
[2023-05-30 14:16] LABS: BLOOD UREA NITROGEN 16 mg/dL (9-20); Glucose 105 mg/dL (74-106)
[2023-05-30 14:17] LABS: ALBUMIN 3.9 g/dL (3.5-5.0); ALKALINE PHOSPHATASE 136 U/L (38-126); CHLORIDE 103 mmol/L (98-107); Calcium 9.7 mg/dL (8.4-10.2); Carbon Dioxide 26 mmol/L (22-30); Creatinine 1 0.97 mg/dL (0.66-1.25); EST GLOMERULAR FILTRATION RATE 84.5 ML/MIN; Potassium 4.1 mmol/L (3.5-5.1); SGOT/AST 20 U/L (17-59); SGPT/ALT 15 U/L (0-50); SODIUM 136 mmol/L (137-145); Total Protein 7.3 g/dL (6.3-8.2)
[2023-05-30 14:18] LABS: ANION GAP 11.1 MEQ/L (5-15)
[2023-05-30 15:34] LABS: ETHYL ALCOHOL < 10 mg/dL (0-10); TSH, 3RD Generation < 0.015 mIU/L (0.47-4.68)
[2023-05-30 15:41] LABS: Appearance Clear (Clear); Bacteria None Seen /HPF (None Seen); Bilirubin Negative (Negative); Blood Negative (Negative); Epithelial Cells None Seen /HPF (None Seen); Glucose, Urine Negative (Negative); Ketones Negative (Negative); Leukocyte Esterase Negative (Negative); Nitrite Negative (Negative); Ph 5.5 (4.6-8.0); Protein,Urine Dip Trace (Negative); RBC 0-2 /HPF (0-5); Specific Gravity 1.025 (1.005-1.030); WBC 0-2 /HPF (0-5)
[2023-05-30 15:46] LABS: ADD URINE CULTURE? NO (NO)
== END 2023-05-30 16:24 | disposition home or self-care (01) ==
LOC: ED 12:24
DX: R53.1 Weakness (principal); E05.90 Thyrotoxicosis, unspecified without thyrotoxic crisis or storm; R41.0 Disorientation, unspecified; M79.10 Myalgia, unspecified site; G80.9 Cerebral palsy, unspecified; Z79.891 Long term (current) use of opiate analgesic; Z79.899 Other long term (current) drug therapy; Z72.0 Tobacco use; Z20.828 Contact with and (suspected) exposure to other viral communicable diseases
CPT/HCPCS: 0241U; 36415; 70450; 80053; 81001; 82077; 82947; 84439; 84443; 84484; 85025; 85610; 86308; 93005; 93041; 99283

== ENCOUNTER 2023-06-01 13:49 | Emergency (ER) | payer MEDICARE ==
[2023-06-01] MEDS ORDERED: DUONEB 0.5-3 MG/3 ml Neb IH ONE ×2 (13:57→13:59)
[2023-06-01 14:00] VITALS: BP 155/76; TEMP 97.9; O2SAT 96
[2023-06-01 14:02] VITALS: PULSE 56; RESP 22
--- NOTE | 2023-06-01 14:27 | XRAY ---
Indication: Cough. Comparison: July 08, 2019 Portable chest again demonstrates COPD, tiny right lung calcified granulomas, and CT proven bilateral calcified pleural plaquing. New mild bibasilar infiltrates/atelectasis, left greater than right. Heart not enlarged. Bony thorax intact.
--- NOTE | 2023-06-01 14:39 | ERPHSYRPT ---
- History of Present Illness Time Seen by Provider: 06/01/23 14:05 Source: patient, family Exam Limitations: physical impairment, other Patient Subjective Stated Complaint: SOB Triage Nursing Assessment: Patient brought into ED per w/c and transferred self to bed. Patient A+O X3. Patient's skin pink, warm and dry. Patient was seeing Dr. Gatica today for ER follow up from 2 days ago. Nurse noted his oxygen on room air was 75% on room air. Patient was sent to ER for eval. Upon assessment patient's O2 sat noted to be 77% on room air with not a good wave form. Patient's hands noted to be cold. RT called into room and obtained sat by ear and sat noted to be 96%-98% on room air. Patient denies pain or discomfort. Lungs noted coarse. Allergies/Adverse Reactions: No Known Drug Allergies Allergy (Verified 05/30/23 12:30) Home Medications: Baclofen 10 mg [Lioresal 10 mg] 10 mg PO BID 12/07/21 [History] Omeprazole 10 mg PO DAILY 12/07/21 [History] Glycopyrrolate 1 mg PO BID 01/22/23 [History] Ropinirole HCl 0.5 mg [Requip 0.5 MG] 0.5 mg PO DAILY 01/22/23 [History] Amoxicillin 500 mg PO TID 05/24/23 [History] Docusate Sodium 100 mg [Docusate Sodium 100 MG] 100 mg PO DAILY 05/24/23 [History] Hydrocodone/Acetaminophen [Hydrocodone-Acetamin 5-325 mg] 1 tab PO DAILY 05/24/23 [History] Hydroxyzine HCl 25 mg [Atarax 25 mg] 25 mg PO DAILY 05/24/23 [History] Pregabalin 75 mg PO HS 05/24/23 [History] atenoloL [Atenolol] 25 mg PO DAILY 05/24/23 [History] Hx Tetanus, Diphtheria Vaccination/Date Given: No Hx Influenza Vaccination/Date Given: Yes Hx Pneumococcal Vaccination/Date Given: No Immunizations Up to Date: Yes Travel Risk - International Travel Have you traveled outside of the country in past 3 weeks: No - Coronavirus Screening Are you exhibiting any of the following symptoms?: No Close contact with a COVID-19 positive Pt in past 14-21 Days: No - Vaccine Status Have you recieved a Covid-19 vaccination: Yes 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: [employer] - Vaccination Dates Date of 2cond Vaccination (if applicable): 2020 - Review of Systems Constitutional: No Symptoms Eyes: No Symptoms Ears, Nose, & Throat: No Symptoms Respiratory: No Symptoms Cardiac: No Symptoms Abdominal/Gastrointestinal: No Symptoms Genitourinary Symptoms: No Symptoms Musculoskeletal: No Symptoms Skin: No Symptoms Neurological: No Symptoms Psychological: No Symptoms Hematologic/Lymphatic: No Symptoms (Patient at his baseline) - Past Medical History Pertinent Past Medical History: Yes Neurological History: Other ENT History: No Pertinent History Cardiac History: No Pertinent History Respiratory History: COPD Endocrine Medical History: No Pertinent History Musculoskeletal History: Osteoarthritis GI Medical History: GI Bleed History: No Pertinent History Psycho-Social History: No Pertinent History Male Reproductive Disorders: No Pertinent History Other Medical History: OA TO BOTH SHOULDERS, HIPS (RIGHT WORST THAN LEFT), HANDS, ETC. - Past Surgical History Past Surgical History: Yes Neuro Surgical History: No Pertinent History Cardiac: No Pertinent History Respiratory: No Pertinent History Gastrointestinal: Hernia Repair, Other Genitourinary: No Pertinent History Musculoskeletal: Orthopedic Surgery Male Surgical History: No Pertinent History Other Surgical History: feeding tube placed for 2months then removed,L shoulder surgery. EGD with food [employer] - Social History Smoking Status: Current every day smoker How long have you smoked: 53 Exposure to second hand smoke: Yes Drug Use: none Patient Lives Alone: No - Nursing Vital Signs Nursing Vital Signs: Initial Vital Signs Temperature 97.9 F 06/01/23 13:55 Pulse Rate 57 L 06/01/23 13:55 Respiratory Rate 18 06/01/23 13:55 Blood Pressure 155/76 06/01/23 13:55 O2 Sat by Pulse Oximetry 97 06/01/23 13:55 Pain Scale Pain Intensity 0 - Physical Exam General Appearance: no apparent distress, alert Eye Exam: PERRL/EOMI Neck Exam: normal inspection, supple Cardiovascular/Chest Exam: normal heart sounds, regular rate/rhythm Abdominal/Gastrointestinal Exam: soft, No tenderness, No distention, No mass Extremity Exam: non-tender, normal range of motion, normal inspection, no calf tenderness, no pedal edema Neurologic Exam: alert, 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 He has loss of coordination and tremors. - Course Nursing assessment & vital signs reviewed: Yes Ordered Tests: Active Orders 24 hr Category Date Time Status CHEST 1 VIEW (PORTABLE) Stat Exams 06/01/23 14:01 Completed Respiratory Therapy Assessment DAILY RT 06/01/23 13:59 Completed Medication Summary Discontinued Medications Generic Name Dose Route Start Last Admin Trade Name Kelby PRN Reason Stop Dose Admin Albuterol/Ipratropium Confirm 06/01/23 13:57 Ipratropium/Albuterol Sulfate 3 Ml Ampul.Neb Administered 06/01/23 13:58 Dose 3 ml IH .STK-MED ONE Albuterol/Ipratropium 3 ml 06/01/23 13:59 06/01/23 14:00 Ipratropium/Albuterol Sulfate 3 Ml Ampul.Neb IH 06/01/23 14:00 3 ml STAT ONE Administration Lab/Rad Data: Procedures: [id number] RAD/CHEST 1 VIEW (PORTABLE) Indication: Cough. Comparison: July 08, 2019 Portable chest again demonstrates COPD, tiny right lung calcified granulomas, and CT proven bilateral calcified pleural plaquing. New mild bibasilar infiltrates/atelectasis, left greater than right. Heart not enlarged. Bony thorax intact. Reported by: ZAK BULLOCK DO Signed by: ZAK BULLOCK DO Signed date/time: 06/01/23 3521 Copies to: ELIS GATICA CHAD - Progress Progress: improved Air Movement: good Progress Note: This patient presents with dyspnea, most likely secondary to COPD. Presentation not consistent with acute cardiac etiologies to include ACS (n, CHF, pericardial effusion / tamponade . Presentation not consistent with acute respiratory etiologies to include acute PE (), pneumothorax , asthma, COPD exacerbation, allergic etiologies, or infectious etiologies such as PNA. Presentation also not consistent with non-cardiopulmonary causes to include toxidromes, metabolic etiologies such as acidemia or electrolyte derangements, sepsis, neurologic causes (i.e. demyelinating diseases). The patient sats were normal. The patient appears clinically at his baseline. The patient does have significant lung pathology. Chest x-ray showed some atelectasis but no clear infiltrate. The patient does not have a fever. Sats are normal. The patient is at his baseline. The patient was given a breathing treatment. Once again x-ray did not show any lobar pneumonia. There is no fever. The patient just was evaluated in the emergency room and had negative flu COVID and RSV. The patient had a normal CAT scan as well. The patient was sent over once again by the primary care doctor because they got a false reading on his pulse ox. 06/01/23 14:34 - Departure Departure Disposition: Home Clinical Impression: COPD (chronic obstructive pulmonary disease) with chronic bronchitis, Dyspnea Condition: Stable Critical Care Time: No Referrals: ELIS GATICA MD [Primary Care Provider] - Follow up/PCP as directed Instructions: Chronic Obstructive Pulmonary Disease, Shortness of Breath (Dyspnea) (DC), Exacerbation of COPD (DC) Additional Instructions: This patient presents with dyspnea, most likely secondary to _. Presentation not consistent with acute cardiac etiologies to include ACS (non ischemic ekg, unremarkable trop), CHF, pericardial effusion / tamponade . Presentation not consistent with acute respiratory etiologies to include acute PE (Wells low risk), pneumothorax , asthma, COPD exacerbation, allergic etiologies, or infectious etiologies such as PNA. Presentation also not consistent with non- cardiopulmonary causes to include toxidromes, metabolic etiologies such as acidemia or electrolyte derangements, sepsis, neurologic causes (i.e. demyelinating diseases).
== END 2023-06-01 15:12 | disposition home or self-care (01) ==
LOC: ED 13:49
DX: J42 Unspecified chronic bronchitis (principal); R06.00 Dyspnea, unspecified; Z79.891 Long term (current) use of opiate analgesic; Z79.899 Other long term (current) drug therapy; Z72.0 Tobacco use
CPT/HCPCS: 71045; 94640; 99282; A9270-GY